=== PATIENT | male | born 1965 | race Hispanic/Latino ===

== ENCOUNTER 2018-10-21 18:35 | Emergency (ER) | payer BC ==
--- OUTSIDE RECORDS SUMMARY | 2018-10-21 18:37 | XMS REPORT ---
:1965 [facility] Address [address] [place] [address] Dr. Garza. [address] [place] [id number] Care Team Providers Name Role Phone DR ELIAS HEALY Unavailable Unavailable Problems This patient has no known problems. Allergies, Adverse Reactions, Alerts This patient has no known allergies or adverse reactions. Medications This patient has no known medications. Results Test Description Test Time Test Comments Text Results Atomic Results Result Comments GLUCOMETER GLUCOSE- LAB USE ONLY 2018-10-21 08:35:00 Test Item Value Reference Range Comments GLUCOMETER (test code=GMG) 140 mg/dL 70-100 DAILY MAINTENANCENOTIFIED DRMeter ID: [id number]: [id number] TIAN CANO GLUCOMETER GLUCOSE- LAB USE [id number] 06:09:00 Test Item Value Reference Range Comments GLUCOMETER (test code=GMG) 149 mg/dL 70-100 Meter ID: [id number]: [id number]
[2018-10-21] MEDS ORDERED: DIPHENHYDRAMINE 50 MG/ML VIAL ONE (19:13)
[2018-10-21] MEDS ORDERED: FAMOTIDINE 20 MG/2 ML VIAL IV ONE (19:13)
--- NOTE | 2018-10-21 20:10 | ER ---
Nurse's Notes [facility] Name: Arpit Wilson Jr Age: 53 yrs Sex: Male : 1965 Arrival Date: 10/21/2018 Time: 18:36 Bed 13 Private MD: Diagnosis: Allergy status to drugs, medicaments and biological substances Presentation: 10/21 18:39 Presenting complaint: Patient states: pt reports SOB and throat tightening after taking sv Tylenol #3 and Demerol PO today at 1615. Symptoms started about 20 mins ago. Transition of care: patient was not received from another setting of care. Onset: The symptoms/episode began/occurred acutely. Anaphylaxis evaluation, no signs or symptoms of anaphylaxis were noted. Onset of symptoms was October 21, 2018. Care prior to arrival: None. 18:39 Method Of Arrival: Carried sv 18:39 Acuity: ELIANA 3 sv 19:00 Risk Assessment: Do you want to hurt yourself or someone else? Patient reports no jb4 desire to harm self or others. 19:00 Initial Sepsis Screen: Does the patient meet any 2 criteria? No. Patient's initial jb4 sepsis screen is negative. Does the patient have a suspected source of infection? No. Patient's initial sepsis screen is negative. Triage Assessment: 18:39 General: Appears in no apparent distress. uncomfortable, Behavior is cooperative, sv anxious. Pain: Denies pain. EENT:. Neuro: Level of Consciousness is awake, alert, obeys commands, Oriented to person, place, time, situation, Moves all extremities. Full function. Respiratory: Airway is patent Respiratory effort is even, unlabored, Respiratory pattern is symmetrical, tachypnea. Historical: - Allergies: 18:40 No Known Allergies; sv - PMHx: 18:40 Hypertension; reflux; Diabetes - NIDDM; sv - PSHx: 18:40 None; left foot; sv - Immunization history:: Adult Immunizations unknown. - Social history:: Smoking status: unknown. - Ebola Screening: : No symptoms or risks identified at this time. Screenin:55 Abuse screen: Denies threats or abuse. Nutritional screening: No deficits noted. em Tuberculosis screening: No symptoms or risk factors identified. Fall Risk None identified. Assessment: 18:55 General: Appears in no apparent distress. uncomfortable, Behavior is calm, cooperative. em Neuro: Level of Consciousness is awake, alert, obeys commands, Oriented to person, place, time, situation. Cardiovascular: Patient's skin is warm and dry. Respiratory: Reports shortness of breath Airway is patent Respiratory effort is even, unlabored, Respiratory pattern is regular, symmetrical, Breath sounds are clear bilaterally. GI: Abdomen is obese. Derm: Skin is intact, is healthy with good turgor, Skin is pink, warm \T\ dry. Musculoskeletal: Range of motion: limited in left ankle. 19:00 Reassessment: The previous assessment is accurate, call light remains within reach. ss 19:07 General: Appears in no apparent distress. comfortable, Behavior is calm, cooperative, jb4 appropriate for age. Pain: Denies pain. Neuro: Level of Consciousness is awake, alert, obeys commands, Oriented to person, place, time, situation. Cardiovascular: Patient's skin is warm and dry. Respiratory: Airway is patent Respiratory effort is even, unlabored, Respiratory pattern is regular, symmetrical, Breath sounds are clear bilaterally. GI: No signs and/or symptoms were reported involving the gastrointestinal system. : No signs and/or symptoms were reported regarding the genitourinary system. EENT: Throat is clear. Derm: Skin is intact, Skin is pink, warm \T\ dry. Musculoskeletal: Circulation, motion, and sensation intact. 20:13 Reassessment: Patient appears in no apparent distress at this time. Patient and/or jb4 family updated on plan of care and expected duration. Pain level reassessed. Patient is alert, oriented x 3, equal unlabored respirations, skin warm/dry/pink. Discussed D/c,F/u with pt and significant other, denies questions or concerns, Verbalized understanding of how to administer epipen if needed and performed teach back. Vital Signs: 18:40 BP 138 / 86; Pulse 86; Resp 22; Temp 97; Pulse Ox 97% ; Weight 116.12 kg; Height 5 ft. sv 9 in. (175.26 cm); 19:37 BP 115 / 78; Pulse 79; Resp 18; Pulse Ox 94% on R/A; mt 20:00 BP 119 / 79; Pulse 76; Resp 16; Pulse Ox 96% on R/A; jb4 18:40 Body Mass Index 37.80 (116.12 kg, 175.26 cm) sv ED Course: 18:36 Patient arrived in ED. ds1 18:40 Triage completed. sv 18:41 Ravin Martines LVN is Primary Nurse. em 18:41 Arm band placed on. sv 18:46 Dale Meng NP is PHCP. pm1 18:46 Brendon Salmeron MD is Attending Physician. pm1 18:55 Patient has correct armband on for positive identification. Placed in gown. Bed in low em position. Call light in reach. Side rails up X2. Adult w/ patient. monitor tech on. Pulse ox on. 19:00 Inserted saline lock: 20 gauge in right antecubital area, using aseptic technique. em 19:07 Door closed. Noise minimized. Warm blanket given. jb4 20:13 No provider procedures requiring assistance completed. jb4 20:13 IV discontinued, intact, bleeding controlled. jb4 Administered Medications: 19:06 Drug: Benadryl 50 mg Route: IVP; Site: right antecubital; jb4 20:26 Follow up: Response: No adverse reaction; Marked relief of symptoms jb4 19:07 Drug: Pepcid 10 mg Route: IVP; Site: right antecubital; jb4 20:00 Follow up: Response: No adverse reaction; Marked relief of symptoms jb4 Outcome: 20:09 Discharge ordered by . pm1 20:13 Discharged to home via wheelchair, with family. jb4 20:13 Condition: stable 20:13 Discharge instructions given to patient, significant other, Instructed on discharge instructions, follow up and referral plans. medication usage, Demonstrated understanding of instructions, follow-up care, medications, Prescriptions given X 3. 20:27 Patient left the ED. jb4 Signatures: Diana Ray RN RN Ravin Martines LVN PHOTOGRAPHER STILL em SingerMeñoi ds1 Lisette Mckay RN RN Dale Meng, GUMARO PUNCHBOARD INSERTER pm1 Hal Rascon RN RN Venessa Epstein mt Corrections: (The following items were deleted from the chart) 19:00 18:39 Presenting complaint: Patient states: pt reports SOB and throat tightening after sv taking Tylenol #3 and Demerol PO today at 1615 sv
--- NOTE | 2018-10-21 20:10 | EDPHYS ---
Physician Documentation [facility] Name: Arpit Wilson Jr Age: 53 yrs Sex: Male : 1965 Arrival Date: 10/21/2018 Time: 18:36 Bed 13 Private MD: ED Physician Brendon Salmeron HPI: 10/21 19:58 This 53 yrs old Male presents to ER via Ambulatory with complaints of Allergic pm1 Reaction. 19:58 The patient presents with Sensation of sore throat after taking pain medication, pm1 Demerol for the the second time.. Onset: The symptoms/episode began/occurred 30 minutes prior to arrival. Associated signs and symptoms: Pertinent positives: shortness of breath, sore throat, Pertinent negatives: abdominal pain, chest pain, hives, rash, vomiting. Possible causes: narcotic, demerol. At home the patient or guardian has treated the symptoms with nothing. Severity of symptoms: in the emergency department the symptoms have improved markedly. The patient has not experienced similar symptoms in the past. The patient has been recently seen by a physician: a advanced practice provider. 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 Was given keflex, tylenol #3 and demerol prescriptions. Patient has had Keflex and Tylenol #3 in the past without any difficulty. Demerol is new to him and after the second dose today he had the sensation of his throat closing and difficulty breathing 30 minutes prior to arrival. Symptoms markedly improved prior to arrival. Historical: - Allergies: 18:40 No Known Allergies; sv - PMHx: 18:40 Hypertension; reflux; Diabetes - NIDDM; sv - PSHx: 18:40 None; left foot; sv - Immunization history:: Adult Immunizations unknown. - Social history:: Smoking status: unknown. - Ebola Screening: : No symptoms or risks identified at this time. ROS: 19:58 Constitutional: Negative for fever, chills, and weight loss, Eyes: Negative for injury, pm1 pain, redness, and discharge, ENT: Negative for injury, pain, and discharge, Neck: Negative for injury, pain, and swelling, Cardiovascular: Negative for chest pain, palpitations, and edema. 19:58 Abdomen/GI: Negative for abdominal pain, nausea, vomiting, diarrhea, and constipation, Back: Negative for injury and pain, : Negative for injury, bleeding, discharge, and swelling, MS/Extremity: Negative for injury and deformity, Skin: Negative for injury, rash, and discoloration, Neuro: Negative for headache, weakness, numbness, tingling, and seizure. 19:58 Respiratory: Positive for shortness of breath, Negative for cough, wheezing. Exam: 19:58 Constitutional: This is a well developed, well nourished patient who is awake, alert, pm1 and in no acute distress. Head/Face: Normocephalic, atraumatic. Eyes: Pupils equal round and reactive to light, extra-ocular motions intact. Lids and lashes normal. Conjunctiva and sclera are non-icteric and not injected. Cornea within normal limits. Periorbital areas with no swelling, redness, or edema. ENT: Nares patent. No nasal discharge, no septal abnormalities noted. Tympanic membranes are normal and external auditory canals are clear. Oropharynx with no redness, swelling, or masses, exudates, or evidence of obstruction, uvula midline. Mucous membranes moist. Neck: Trachea midline, no thyromegaly or masses palpated, and no cervical lymphadenopathy. Supple, full range of motion without nuchal rigidity, or vertebral point tenderness. No Meningismus. Chest/axilla: Normal chest wall appearance and motion. Nontender with no deformity. No lesions are appreciated. Cardiovascular: Regular rate and rhythm with a normal S1 and S2. No gallops, murmurs, or rubs. Normal PMI, no JVD. No pulse deficits. Respiratory: Lungs have equal breath sounds bilaterally, clear to auscultation and percussion. No rales, rhonchi or wheezes noted. No increased work of breathing, no retractions or nasal flaring. Abdomen/GI: Soft, non-tender, with normal bowel sounds. No distension or tympany. No guarding or rebound. No evidence of tenderness throughout. Back: No spinal tenderness. No costovertebral tenderness. Full range of motion. Skin: Warm, dry with normal turgor. Normal color with no rashes, no lesions, and no evidence of cellulitis. MS/ Extremity: Pulses equal, no cyanosis. Neurovascular intact. Full, normal range of motion. 19:58 Neuro: Orientation: is normal, Motor: is normal, Gait: is steady, at a normal pace, without difficulty. Vital Signs: 18:40 BP 138 / 86; Pulse 86; Resp 22; Temp 97; Pulse Ox 97% ; Weight 116.12 kg; Height 5 ft. sv 9 in. (175.26 cm); 19:37 BP 115 / 78; Pulse 79; Resp 18; Pulse Ox 94% on R/A; mt 20:00 BP 119 / 79; Pulse 76; Resp 16; Pulse Ox 96% on R/A; jb4 18:40 Body Mass Index 37.80 (116.12 kg, 175.26 cm) sv MDM: 18:46 Patient medically screened. pm1 18:55 ED course: Patient is diabetic and just had surgery. Patient's symptoms of shortness of pm1 breath and sore throat almost completely resolved. Will treat with Benadryl and Pepcid and observe. Do not want to give steroids unless necessary due to the risk of delaying wound healing.. 19:58 Data reviewed: vital signs. Data interpreted: Pulse oximetry: on room air is 97 %. pm1 Interpretation: normal. 20:07 ED course: Patient's symptoms completely resolved. Will discharge patient home with pm1 Pepcid, Benadryl and EpiPen. Patient said that he will stop all the pain medications and will just take the Keflex. 20:08 Counseling: I had a detailed discussion with the patient and/or guardian regarding: the pm1 historical points, exam findings, and any diagnostic results supporting the discharge/admit diagnosis, the need for outpatient follow up, to return to the emergency department if symptoms worsen or persist or if there are any questions or concerns that arise at home. 10/21 18:55 Order name: IV Saline Lock; Complete Time: 19:01 pm1 Administered Medications: 19:06 Drug: Benadryl 50 mg Route: IVP; Site: right antecubital; jb4 20:26 Follow up: Response: No adverse reaction; Marked relief of symptoms jb4 19:07 Drug: Pepcid 10 mg Route: IVP; Site: right antecubital; jb4 20:00 Follow up: Response: No adverse reaction; Marked relief of symptoms jb4 Disposition: 10/21/18 20:09 Discharged to Home. Impression: Allergy status to drugs, medicaments and biological substances. - Condition is Stable. - Discharge Instructions: Drug Allergy. - Prescriptions for Benadryl 25 mg Oral Capsule - take 1 capsule by ORAL route every 6 hours As needed; 30 tablet. Pepcid 20 mg Oral Tablet - take 1 tablet by ORAL route every 12 hours for 10 days; 20 tablet. EpiPen 0.3 mg Injection auto- injector - inject 1 pen by INTRAMUSCULAR route one time As needed Inject into the outer portion of the thigh, through clothing if necessary. Indicated in the emergency treatment of allergic reactions; 1 unit. - Medication Reconciliation Form, Thank You Letter, Antibiotic Education, Prescription Opioid Use form. - Follow up: Emergency Department; When: As needed; Reason: Worsening of condition. Follow up: Private Physician; When: 2 - 3 days; Reason: Recheck today's complaints, Continuance of care, Re-evaluation by your physician. - Problem is new. - Symptoms have improved. Addendum: 10/24/2018 07:01 Co-signature as Attending Physician, Brendon Salmeron MD I agree with the assessment and c trevizo plan of care. Signatures: Diana Ray, RN Brendon Sanchez MD MD cha Marinas, Patrick, GUMARO AUDIO VISUAL TECHNICIAN pm1 Hal Rascon RN RN jb4 Corrections: (The following items were deleted from the chart) 10/21 20:27 20:09 10/21/2018 20:09 Discharged to Home. Impression: Allergy status to drugs, jb4 medicaments and biological substances. Condition is Stable. Forms are Medication Reconciliation Form, Thank You Letter, Antibiotic Education, Prescription Opioid Use. Follow up: Emergency Department; When: As needed; Reason: Worsening of condition. Follow up: Private Physician; When: 2 - 3 days; Reason: Recheck today's complaints, Continuance of care, Re-evaluation by your physician. Problem is new. Symptoms have improved. pm1
== END 2018-10-21 20:27 | disposition home or self-care (01) ==
LOC: ER 18:35
DX: R06.02 Shortness of breath (principal); I10 Essential (primary) hypertension; Z88.8 Allergy status to other drugs, medicaments and biological substances
CPT/HCPCS: 96374; 96375; 99284

== ENCOUNTER 2020-01-12 10:31 | Emergency (ER) | payer BC, OTHER ==
--- OUTSIDE RECORDS SUMMARY | 2020-01-12 10:34 | XMS REPORT ---
:1965 Author [facility] Address [address] [place] [address] Dr. Garza. [address] [place] [address] Care Team Providers Name Role Phone DR ELIAS HEALY Unavailable Unavailable Payers Payer Name Policy Type Policy Number Effective Date Expiration Date Problems This patient has no known problems. Allergies, Adverse Reactions, Alerts Allergy Name Allergy Status Severity Reaction(s) Onset Inactive Treating Comments Type Date Date Clinician meperidine DA Active SV 2019-03 00:00:0 0 Medications This patient has no known medications. Encounters Start End Encounter Admission Attending Care Care Encounter Date/Time Date/Time Type Type Clinicians Facility Department ID 2018-10-21 2018-10-21 Outpatient Viridiana HEALY [facility] [id number] 05:08:00 08:00:00 ELIAS Results Test Description Test Time Test Comments Text Results Atomic Results Result Comments SURGICAL 2019-05-30 RUN DATE: SPECIMENS 14:54:00 05/30/19 [facility] *LIVE* PAGE 1 RUN TIME: 4 Specimen Inquiry RUN USER: INTERFACE PATIENT: MARGIE BUSH JR LOC: Vicente5N POD B U #: [id number] AGE/SX: 53/M ROOM: [facility] RE05/29/19REG DR: Farhan Gonsales MD : 69 BED: 1 DIS: 05/30/19 STATUS: DIS IN TLOC: This is a corrected report.Any previous versions are stored internally and are available if necessary. SPEC #: [id number] RECD: 05/29/19 STATUS: DEMETRIS REFlakita # : [id number] CELENA: 05/29/[address]: Farhan Gonsales MD ENTERED: 05/29/19 SP TYPE: SURG OTHR DR: ORDERED: PATHGM5, PATH SPEC, H E STAIN, IRON STAIN, PAS STAIN, TRICHROME STAIN, PAS WO.STAIN HISTOLOGY: TISSUE ID BLK PCS SHERRILL LEV / PROCEDURE DISPOSITION ____ ___ ___ ___ ___ LIVER WEDGE BX A 1 2 Signed by: 05/30/191447 [place] Signed by: 05/30/191447 [place] TISSUES : A. LIVER WEDGE BIOPSY - Liver Biospy Signed by: 05/30/191447 [place] CLINICAL HISTORY Morbid Obesity, Reflux, Hypertension, Diabetes, Hepatic Stenosis Signed by: 05/30/191447 [place] COMMENT Changes are consistent with fatty liver disease, borderline steatohepatitis. Signed by: 05/30/191447 [place] FINAL DIAGNOSIS LIVER BIOPSY: - Zone 3 steatosis, involving approximately two-thirds of hepatocytes. - Minimal lobular inflammation with lymphocytes. - No definitive ballooning degeneration. - Portal tracts with no significant pathologic changes. - No PAS positive diastase resistant globules identified on PAS with and without CONTINUED ON NEXT PAGE RUN DATE: 05/30/19 Meme Benitez [facility] *LIVE* PAGE 2 RUN TIME: 1454 Specimen Inquiry RUN USER: INTERFACE SPEC #: [id number] PATIENT: MARGIE BUSH #[id number] (Continued) FINAL DIAGNOSIS (Continued) diastase stain. - Iron stain negative. - No fibrosis identified on Trichrome stain. Signed by: 05/30/191447 [place] GROSS DESCRIPTION CORRECTED RESULT Edited By: NegritoYGEdit Date: 05/30/19 Edit Time: 1Edit Reason: TYPO IN GROSS DESCRIPTION LIVER BIOPSY: The specimen consists of a fragment of liver with cauterized ROUGH surface. It is 3 x 1 x 0.5 cm. Serially sectioned and entirely submitted in one cassette. Liver panel including PAS with and without diastase, Trichrome and iron stains are ordered. JUAN JOSE/mikal Signed by: 05/30/191453 [place] GROSS DESCRIPTION LIVER BIOPSY: The specimen consists of a fragment of liver with cauterized lung surface. It is 3 x 1 x 0.5 cm. Serially sectioned and entirely submitted in one cassette. Liver panel including PAS with and without diastase, Trichrome and iron stains are ordered. JUAN JOSE/mikal Signed by: 05/30/191447 [place] MICROSCOPIC DESCRIPTION Microscopic performed. Signed by: 05/30/191447 [place] Signed SIGNATURE ON FILE Brayden Tristan MD 05/30/19 7658 END OF REPORT SURGICAL 2019-05-30 RUN DATE: SPECIMENS 14:48:00 05/30/19 [facility]e [facility] *LIVE* PAGE 1 RUN TIME: 1448 Specimen Inquiry RUN USER: INTERFACE PATIENT: [facility]USH [facility] #: [id number] AGE/SX: 53/M ROOM: [facility] RE05/29/19[facility] DR: Farhan Gonsales MD : 69 BED: 1 DIS: 05/30/19 STATUS: DIS IN TLOC: SPEC #: [id number] RECD: 05/29/19 STATUS: DEMETRIS REFlakita # : [id number] CELENA: 05/29/19 [facility] DR: Farhan Gonsales MD ENTERED: 05/29/19 SP TYPE: SURG OTHR DR: ORDERED: PATHGM5, PATH SPEC, H E STAIN, IRON STAIN, PAS STAIN, TRICHROME STAIN, PAS WO.STAIN HISTOLOGY: TISSUE ID BLK PCS SHERRILL LEV / PROCEDURE DISPOSITION ____ ___ ___ ___ ___ LIVER WEDGE BX A 1 2 TISSUES: A. LIVER WEDGE BIOPSY - Liver Biospy CLINICAL HISTORY Morbid Obesity, Reflux, Hypertension, Diabetes, Hepatic Stenosis COMMENT Changes are consistent with fatty liver disease, borderline steatohepatitis. FINAL DIAGNOSIS LIVER BIOPSY: - Zone 3 steatosis, involving approximately two-thirds of hepatocytes. - Minimal lobular inflammation with lymphocytes. - No definitive ballooning degeneration. - Portal tracts with no significant pathologic changes. - No PAS positive diastase resistant globules identified on PAS with and without diastase stain. - Iron stain negative. - No fibrosis identified on Trichrome stain. GROSS DESCRIPTION LIVER BIOPSY: The specimen consists of a fragment of liver with cauterized _ lung surface. It is 3 x 1 x 0.5 cm. Serially sectioned and entirely submitted in one cassette. Liver panel including PAS with and without diastase, Trichrome and iron stains are ordered. YYeison/ mikla MICROSCOPIC DESCRIPTION Microscopic performed. CONTINUED ON NEXT PAGE RUN DATE: 05/30/19 Meme GOMEZ *LIVE* PAGE 2 RUN TIME: 1448 Specimen Inquiry RUN USER: INTERFACE SPEC #: [id number] PATIENT: MARGIE BUSH JR #[id number] (Continued) Signed SIGNATURE ON FILE Brayden Tristan MD 05/30/19 1448 END OF REPORT GLUBED 2019-05-30 09:44:00 Test Item Value Reference Range Comments GLUBED (test code=GLUBED) 248 MG/DL -105 [id number] 04:37:00 Test Item Value Reference Range Comments GLUBED (test code=GLUBED) 189 MG/DL - [id number] 22:30:00 Test Item Value Reference Range Comments GLUBED (test code=GLUBED) 196 MG/DL -105 [id number] 10:44:00 Test Item Value Reference Range Comments GLUBED (test code=GLUBED) 280 MG/DL 70-105 BASIC METABOLIC [id number] 06:45:00 Test Item Value Reference Range Comments SODIUM (test code=NA) 132 MMOL/L 136-143 POTASSIUM (test code=K) 3.9 MMOL/L 3.5-5.1 CHLORIDE (test code=CL) 96 MMOL/L 98-107 CARBON DIOXIDE (test 25 mmol/L 24-31 code=CO2) GLUCOSE (test code=GLU) 205 mg/dL 70-104 BLOOD UREA NITROGEN (test 14.2 MG/DL 7.0-21.0 code=BUN) GLOMERULAR FILTRATION >=60 max estimate >60 The estimated glomerular RATE (test code=GFR) filtration rate is computed usingpatient race, age (>18), sex, and serum creatinine. If anyof the needed data elements are missing the Laboratory cannot compute an estimation of the glomerular filtration rate. CREATININE (test 0.7 mg/dL 0.8-1.5 code=CREAT) CALCIUM (test code=CA) 9.3 mg/dL 8.8-10.2 CBC W/AUTO [id number] 06:34:00 Test Item Value Reference Range Comments WHITE BLOOD CELL (test code=WBC) 6.9 x10 3/uL 4.8-10.8 RED BLOOD CELL (test code=RBC) 5.07 x10 6/uL 4.70-6.10 HEMOGLOBIN (test code=HGB) 14.9 g/dL 14.5-20 HEMATOCRIT (test code=HCT) 42.8 % 42.0-52.0 MEAN CELL VOLUME (test code=MCV) 84.4 fL 80.0-94.0 MEAN CELL HGB (test code=MCH) 29.4 pg 27-31 MEAN CELL HGB CONCENTRATION (test code=MCHC) 34.8 G/DL 33-36.5 RED CELL DISTRIBUTION WIDTH (test code=RDW) 13.0 % 12.9-16.9 PLATELET COUNT (test code=PLT) 185 150-440 MEAN PLATELET VOLUME (test code=MPV) 11.8 fL 8.9-12.4 NEUTROPHIL % (test code=NT%) 47.0 % 42.2-75.2 LYMPHOCYTE % (test code=LY%) 37.6 % 20.5-51.1 MONOCYTE % (test code=MO%) 10.5 % 1.7-9.3 EOSINOPHIL % (test code=EO%) 3.2 % 0.0-7.0 BASOPHIL % (test code=BA%) 1.0 % 0-2.5 NEUTROPHIL # (test code=NT#) 3.23 x10 3/uL 1.80-7.70 LYMPHOCYTE # (test code=LY#) 2.59 x10 3/uL 1.00-4.80 MONOCYTE # (test code=MO#) 0.72 x10 3/uL 0.00-0.80 EOSINOPHIL # (test code=EO#) 0.22 x10 3/uL 0.00-0.45 BASOPHIL # (test code=BA#) 0.07 x10 3/uL 0.0-0.20 GLUCOMETER GLUCOSE- LAB USE [id number] 08:35:00 Test Item Value Reference Range Comments GLUCOMETER (test 140 mg/dL 70-100 DAILY MAINTENANCENOTIFIED DRMeter code=GMG) ID: [id number]: [id number] TIAN CANO GLUCOMETER GLUCOSE- LAB USE [id number] 06:09:00 Test Item Value Reference Range Comments GLUCOMETER (test code=GMG) 149 mg/dL 70-100 Meter ID: [id number]: [id number]
[2020-01-12 11:11] LABS: Absolute Lymphocytes (CBC) 1.4 K/uL (0.7-4.9); Basophils % 0.9 % (0-1.3); Hematocrit 45.4 % (39.6-49.0); Lymphocytes % 16.4 % (15.3-44.8); MPV 9.7 fL (7.6-11.3); RBC Red Blood Cell Count 5.11 M/uL (4.33-5.43)
--- NOTE | 2020-01-12 11:18 | RAD REPORT ---
EXAM DESCRIPTION: CT - Stone Protocol - 01/12/2020 11:09 am CLINICAL HISTORY: Flank pain. right side abdomen pain COMPARISON: Abdomen Pelvis W Contrast dated 03/26/2016 TECHNIQUE: Axial images were obtained without oral or IV contrast. Lack of contrast limits solid org an and vascular assessment. The [id number] spans the entirety of the system partially obscuring uppermost abdomen and lung bases. Coronal reformatted images were obtained and reviewed. All CT scans are performed using dose optimization technique as appropriate and may include automated exposure control or mA/KV adjustment according to patient size. FINDINGS: The lower lung carrion are clear. Postsurgical changes are present about the stomach. Anter ior hernia repair surgery also seen. Imaged portions of the liver and spleen show no suspicious findings on non-contrast imaging. The panc reas and adrenal glands are normal. No pathologic lymphadenopathy in the abdomen or pelvis. 3 mm stone is present at the right UVJ resulting in mild right hydronephrosis. No left-sided stone or hydronephrosis. No bowel obstruction, free air, free fluid or abscess. Normal appendix noted. No significant bony abnormality. IMPRESSION: 3 mm stone right UVJ resulting in mild right hydronephrosis.
[2020-01-12] MEDS ORDERED: KETOROLAC 30 MG/ML INJ ONE (11:24)
[2020-01-12] MEDS ORDERED: ONDANSETRON 4 MG/2 ML VIAL ONE (11:24)
[2020-01-12] MEDS ORDERED: NA CHLORIDE 0.9% 1,000 ML ONE (11:24)
[2020-01-12 11:27] LABS: Bilirubin Direct 0.2 mg/dL (0-0.2); Bilirubin Total 0.9 mg/dL (0.2-1.0); Potassium 3.7 mmol/L (3.5-5.1); Protein, Total 8.1 g/dL (6.4-8.2)
[2020-01-12] MEDS ORDERED: TAMSULOSIN 0.4 MG SR CAP ONE (12:04)
[2020-01-12] MEDS ORDERED: MORPHINE 4 MG/ML SYR ONE (12:04)
[2020-01-12] MEDS ORDERED: MAGNESIUM SULFATE 1 gm IVPB 1 GM/100 ML BAG IV ONE (12:05)
[2020-01-12 12:06] LABS: Urine Bacteria <20 /HPF (NONE SEEN); Urine RBC >50 /HPF (NONE SEEN)
[2020-01-12 12:07] LABS: Urine Urothelial Cells <5 /HPF (NONE SEEN)
[2020-01-12 12:07] LABS: Urine Blood 3+ (NEG); Urine Glucose NEGATIVE (NEG); Urine Protein 1+ (NEG)
--- NOTE | 2020-01-12 12:39 | EDPHYS ---
Physician Documentation [facility] Name: Arpit Wilson Jr Age: 54 yrs Sex: Male : 1965 Arrival Date: 01/12/2020 Time: 10:34 Bed 20 Private MD: ED Physician Brendon Salmeron HPI: 01/11 10:55 This 54 yrs old Male presents to ER via Ambulatory with complaints of cp Abdominal Pain. 10:55 The patient presents with abdominal pain right mid abdomen. cp 10:55 Onset: The symptoms/episode began/occurred this morning. cp 10:55 Associated signs and symptoms: Pertinent positives: nausea, urinary frequency. Patient cp reports pain started mid back and has now moved to right side of abdomen. Historical: - Allergies: 10:48 No Known Allergies; iw - Home Meds: 10:48 None [Active]; iw - PMHx: 10:48 reflux; iw - PSHx: 10:48 gastric sleeve; iw - Immunization history:: Adult Immunizations up to date. - Social history:: Smoking status: Patient/guardian denies using tobacco, Stopped _ months ago 9. ROS: 11:00 Constitutional: Negative for body aches, chills, fever, poor PO intake. cp 11:00 Eyes: Negative for injury, pain, redness, and discharge. cp 11:00 ENT: Negative for drainage from ear(s), ear pain, sore throat, difficulty swallowing, difficulty handling secretions. 11:00 Cardiovascular: Negative for chest pain. 11:00 Respiratory: Negative for cough, shortness of breath, wheezing. 11:00 Abdomen/GI: Positive for abdominal pain, nausea, Negative for vomiting, diarrhea, constipation, anorexia, black/tarry stool, rectal bleeding. 11:00 Back: Positive for pain at rest, of the right mid back. 11:00 : Positive for urinary frequency, Negative for burning with urination, testicular pain 11:00 Skin: Negative for rash. 11:00 Neuro: Negative for altered mental status, headache, weakness. 11:00 All other systems are negative. Exam: 11:10 Constitutional: The patient appears in no acute distress, alert, awake, non-toxic, well cp developed, well nourished. 11:10 Head/Face: Normocephalic, atraumatic. cp 11:10 Eyes: Periorbital structures: appear normal, Conjunctiva: normal, no exudate, no injection, Sclera: no appreciated abnormality, Lids and lashes: appear normal, bilaterally. 11:10 ENT: External ear(s): are unremarkable, Nose: is normal, Mouth: is normal, Posterior pharynx: is normal, airway is patent. 11:10 Chest/axilla: Inspection: normal, Palpation: is normal, no crepitus, no tenderness. 11:10 Cardiovascular: Rate: normal, Rhythm: regular. 11:10 Respiratory: the patient does not display signs of respiratory distress, Respirations: normal, no use of accessory muscles, labored breathing, is not present, Breath sounds: are clear throughout, no decreased breath sounds. 11:10 Abdomen/GI: Inspection: abdomen appears normal, Bowel sounds: active, all quadrants, Palpation: soft, in all quadrants, moderate abdominal tenderness, in the anterior aspect of right lateral abdomen and right mid abdomen, rebound tenderness, is not appreciated, involuntary guarding, is not appreciated. 11:10 Back: pain, that is mild, of the right mid back. 11:10 Skin: no rash present. 11:10 Neuro: Orientation: to person, place \T\ time. Mentation: is normal. Vital Signs: 10:46 BP 158 / 79; Pulse 84; Resp 16; Temp 98.2; Pulse Ox 100% on R/A; Weight 97.07 kg; iw Height 5 ft. 9 in. (175.26 cm); Pain 10/10; 11:30 BP 141 / 78; Pulse 83; Resp 18; Pulse Ox 97% ; aj1 10:46 Body Mass Index 31.60 (97.07 kg, 175.26 cm) iw MDM: 10:43 Patient medically screened. taylor 11:00 Differential diagnosis: appendicitis, cholecystitis, Cholelithiasis, non-specific abd cp pain, pancreatitis, Pyelonephritis, Testicular Torsion, Ureterolithiasis, urinary tract infection. 12:37 Data reviewed: vital signs, nurses notes, lab test result(s), radiologic studies, CT cp scan. 12:37 Counseling: I had a detailed discussion with the patient and/or guardian regarding: the cp historical points, exam findings, and any diagnostic results supporting the discharge/admit diagnosis, lab results, radiology results, to return to the emergency department if symptoms worsen or persist or if there are any questions or concerns that arise at home. Response to treatment: the patient's symptoms have markedly improved after treatment, and as a result, I will discharge patient. ED course: VSS. Pain improved. Will discharge to home for continued monitoring. 01/11 10:49 Order name: Basic Metabolic Panel 01/11 10:49 Order name: CBC with Diff 01/11 10:49 Order name: Creatinine for Radiology 01/11 10:49 Order name: Hepatic Function 01/11 10:49 Order name: Lipase 01/11 10:55 Order name: Urine Microscopic Only 01/11 11:12 Order name: CBC with Automated Diff; Complete Time: 11:29 EDMS 01/11 11:29 Interpretation: Normal except: YOLIE% 76.1. 01/11 11:25 Order name: Creatinine (Radiology Only); Complete Time: 11:29 EDMS 01/11 11:28 Order name: Basic Metabolic Panel; Complete Time: 11:29 EDMS 01/11 11:29 Interpretation: Normal except: GLUC 171; GFR 67. 01/11 11:28 Order name: Liver (Hepatic) Function; Complete Time: 11:29 EDMS 01/11 11:30 Interpretation: Normal except: GLOB 4.1; A/G 1.0. 01/11 11:28 Order name: Lipase; Complete Time: 11:29 EDMS 01/11 11:30 Interpretation: Reviewed. 01/11 11:34 Order name: Urine Dipstick--Ancillary (enter results) 01/11 12:08 Order name: Urine Microscopic Only; Complete Time: 12:39 EDMS 01/11 12:08 Order name: Urine Dipstick-Ancillary; Complete Time: 12:39 EDMS 01/11 12:39 Interpretation: Normal except: UKET 2+; UBLD 3+; UPROT 1+. 01/11 10:49 Order name: IV Saline Lock; Complete Time: 11:03 01/11 10:49 Order name: Labs collected and sent; Complete Time: 11:10 01/11 10:49 Order name: Urine Dipstick-Ancillary (obtain specimen); Complete Time: 11:32 cp 01/11 10:55 Order name: CT Stone Protocol 01/11 11:25 Order name: CT; Complete Time: 11:29 EDMS Administered Medications: 11:42 Drug: NS 0.9% 1000 ml Route: IV; Rate: 1 bolus; Site: left antecubital; aj1 13:31 Follow up: IV Status: Completed infusion; IV Intake: 1000ml aj1 11:42 Drug: TORadol - Ketorolac 15 mg Route: IVP; Site: left antecubital; aj1 13:32 Follow up: Response: No adverse reaction aj1 11:43 Drug: Zofran (Ondansetron) 4 mg Route: IVP; Site: left antecubital; aj1 13:32 Follow up: Response: No adverse reaction aj1 12:11 Drug: Magnesium Sulfate 1 grams Route: IVPB; Infused Over: 1 hrs; Site: left aj1 antecubital; 12:11 Drug: Flomax 0.4 mg Route: PO; aj1 13:31 Follow up: Response: No adverse reaction aj1 12:11 Drug: morphine 4 mg Route: IVP; Site: left antecubital; aj1 13:31 Follow up: Response: No adverse reaction aj1 Disposition: 16:32 Co-signature as Attending Physician, Brenodn Salmeron MD I agree with the assessment and taylor plan of care. Disposition: 01/12/20 12:38 Discharged to Home. Impression: Calculus of ureter - right. - Condition is Stable. - Discharge Instructions: Kidney Stones, Renal Colic. - Prescriptions for Tylenol- Codeine #3 300-30 mg Oral Tablet - take 2 tablets by ORAL route every 8 hours As needed; 20 tablet. Zofran 4 mg Oral Tablet - take 1 tablet by ORAL route every 12 hours As needed; 20 tablet. Flomax 0.4 mg Oral Capsule, Sust. Release 24 hr - take 1 capsule by ORAL route once daily 1/2 hour following the same meal each day; 5 capsule. - Medication Reconciliation Form, Thank You Letter, Antibiotic Education, Prescription Opioid Use form. - Follow up: Dominick Ponce MD; When: 2 - 3 days; Reason: symptoms continue. - Problem is new. - Symptoms have improved. Signatures: Dispatcher [employer] EDPA Susan Oliveira RN RN aj1 Brendon Salmeron MD MD cha Williams, Irene, RN RN Brendon Fang PA PA cp Corrections: (The following items were deleted from the chart) 13:33 12:38 01/12/2020 12:38 Discharged to Home. Impression: Calculus of ureter - right. aj1 Condition is Stable. Forms are Medication Reconciliation Form, Thank You Letter, Antibiotic Education, Prescription Opioid Use. Follow up: Dominick Ponce; When: 2 - 3 days; Reason: symptoms continue. Problem is new. Symptoms have improved. cp
--- NOTE | 2020-01-12 12:39 | ER ---
Nurse's Notes [facility] Name: Arpit Wilson Jr Age: 54 yrs Sex: Male : 1965 Arrival Date: 01/12/2020 Time: 10:34 Bed 20 Private MD: Diagnosis: Calculus of ureter-right Presentation: 01/11 10:46 Chief complaint: Patient states: right sided back pain radiating to RUQ X 2 hours, also iw vomited , denies diarrhea, no constipation. Coronavirus screen: The patient has NOT traveled to a country currently being monitored by the [facility] within the last 14 days. Proceed with normal triage procedures. The patient has NOT had contact with any known and/or suspected case of coronavirus. Proceed with normal triage procedures. Ebola Screen: Patient negative for fever greater than or equal to 101.5 degrees Fahrenheit, and additional compatible Ebola Virus Disease symptoms Patient denies exposure to infectious person. Patient denies travel to an Ebola-affected area in the 21 days before illness onset. No symptoms or risks identified at this time. Initial Sepsis Screen: Does the patient meet any 2 criteria? No. Patient's initial sepsis screen is negative. Does the patient have a suspected source of infection? No. Patient's initial sepsis screen is negative. Risk Assessment: Do you want to hurt yourself or someone else? Patient reports no desire to harm self or others. 10:46 Method Of Arrival: Ambulatory iw 10:46 Acuity: ELIANA 3 iw Triage Assessment: 10:50 General: Appears in no apparent distress. comfortable, Behavior is calm, cooperative, bp appropriate for age. Pain: Complains of pain in right upper quadrant. EENT: No deficits noted. Neuro: No deficits noted. Cardiovascular: No deficits noted. Respiratory: No deficits noted. GI: Reports upper abdominal pain, nausea, vomiting. : No signs and/or symptoms were reported regarding the genitourinary system. Derm: No deficits noted. Musculoskeletal: No deficits noted. Historical: - Allergies: 10:48 No Known Allergies; iw - Home Meds: 10:48 None [Active]; iw - PMHx: 10:48 reflux; iw - PSHx: 10:48 gastric sleeve; iw - Immunization history:: Adult Immunizations up to date. - Social history:: Smoking status: Patient/guardian denies using tobacco, Stopped _ months ago 9. Screenin:11 Abuse screen: Denies threats or abuse. Denies injuries from another. Nutritional bp screening: No deficits noted. Tuberculosis screening: No symptoms or risk factors identified. Fall Risk None identified. Assessment: 10:50 General: SEE TRIAGE NOTE. bp 11:13 Reassessment: PT RETURNED FROM CT. bp 11:30 General: Appears in no apparent distress. comfortable, Behavior is calm, cooperative, aj1 appropriate for age. Pain: Complains of pain in back and right upper quadrant Pain does not radiate. Neuro: Level of Consciousness is awake, alert, obeys commands, Oriented to person, place, time, situation. Cardiovascular: Patient's skin is warm and dry. Respiratory: Airway is patent Respiratory effort is even, unlabored, Respiratory pattern is regular, symmetrical. GI: Abdomen is non-distended, Bowel sounds present X 4 quads. Abd is soft and non tender X 4 quads. Reports upper abdominal pain, nausea, vomiting. : No signs and/or symptoms were reported regarding the genitourinary system. EENT: No signs and/or symptoms were reported regarding the EENT system. Derm: No signs and/or symptoms reported regarding the dermatologic system. Skin is pink, warm \T\ dry. normal. Musculoskeletal: No signs and/or symptoms reported regarding the musculoskeletal system. Circulation, motion, and sensation intact. 12:12 Reassessment: Patient appears in no apparent distress at this time. No changes from aj1 previously documented assessment. Patient and/or family updated on plan of care and expected duration. Pain level reassessed. Patient is alert, oriented x 3, equal unlabored respirations, skin warm/dry/pink. 13:30 Reassessment: Patient appears in no apparent distress at this time. No changes from aj1 previously documented assessment. Patient and/or family updated on plan of care and expected duration. Pain level reassessed. Patient is alert, oriented x 3, equal unlabored respirations, skin warm/dry/pink. Vital Signs: 10:46 BP 158 / 79; Pulse 84; Resp 16; Temp 98.2; Pulse Ox 100% on R/A; Weight 97.07 kg; iw Height 5 ft. 9 in. (175.26 cm); Pain 10/10; 11:30 BP 141 / 78; Pulse 83; Resp 18; Pulse Ox 97% ; aj1 10:46 Body Mass Index 31.60 (97.07 kg, 175.26 cm) iw ED Course: 10:34 Patient arrived in ED. fj1 10:43 Brendon Salmeron MD is Attending Physician. taylor 10:43 Brendon Fang PA is PHCP. cp 10:48 Triage completed. iw 10:49 Arm band placed on. iw 11:00 Initial lab(s) drawn, by me, sent to lab. Inserted saline lock: 20 gauge in left iw antecubital area, using aseptic technique. Blood collected. 11:11 Patient has correct armband on for positive identification. Bed in low position. Call bp light in reach. Side rails up X2. 11:24 Susan Oliveira, CHRISTA is Primary Nurse. aj1 11:30 No provider procedures requiring assistance completed. aj1 11:32 Basic Metabolic Panel Sent. 5 11:32 CBC with Diff Sent. 5 11:32 Creatinine for Radiology Sent. 5 11:32 Hepatic Function Sent. 5 11:32 Lipase Sent. 5 12:37 Dominick Ponce MD is Referral Physician. cp 13:15 Removal of peripheral IV. Catheter intact, dressing applied. jp3 13:30 IV discontinued, intact, bleeding controlled, No redness/swelling at site. Pressure aj1 dressing applied. Administered Medications: 11:42 Drug: NS 0.9% 1000 ml Route: IV; Rate: 1 bolus; Site: left antecubital; aj1 13:31 Follow up: IV Status: Completed infusion; IV Intake: 1000ml aj1 11:42 Drug: TORadol - Ketorolac 15 mg Route: IVP; Site: left antecubital; aj1 13:32 Follow up: Response: No adverse reaction aj1 11:43 Drug: Zofran (Ondansetron) 4 mg Route: IVP; Site: left antecubital; aj1 13:32 Follow up: Response: No adverse reaction aj1 12:11 Drug: Magnesium Sulfate 1 grams Route: IVPB; Infused Over: 1 hrs; Site: left aj1 antecubital; 12:11 Drug: Flomax 0.4 mg Route: PO; aj1 13:31 Follow up: Response: No adverse reaction aj1 12:11 Drug: morphine 4 mg Route: IVP; Site: left antecubital; aj1 13:31 Follow up: Response: No adverse reaction aj1 Intake: 13:31 IV: 1000ml; Total: 1000ml. aj1 Outcome: 12:38 Discharge ordered by . carlos 13:33 Discharged to home ambulatory. aj1 13:33 Condition: good 13:33 Discharge instructions given to patient, Instructed on discharge instructions, follow up and referral plans. no drinking with medication, no driving heavy equipment, medication usage, Demonstrated understanding of instructions, follow-up care, medications. 13:33 Patient left the ED. aj1 Signatures: Susan Oliveira RN RN aj1 Brendon Salmeron MD MD cha Williams, Irene, RN RN iw Brendon Fang, PA PA Chela Mcdaniel 5 Jack Busch RN RN Andrew Fox jp3 Vaibhav Hong fj1 Corrections: (The following items were deleted from the chart) 10:49 10:46 Resp 16bpm; Pulse Ox 100% RA; Temp 98.2F; 97.07 kg; Height 5 ft. 9 in.; BMI: iw 31.6; Pain 08/17; iw
[2020-01-12 13:54] VITALS: TEMP 98.2
[2020-01-12 13:56] VITALS: BP 141/78; O2SAT 97
== END 2020-01-12 13:33 | disposition home or self-care (01) ==
LOC: ER 10:31
DX: N20.1 Calculus of ureter (principal); Z87.891 Personal history of nicotine dependence
CPT/HCPCS: 96361; 85025; 80048; 36415; 80076; 83690; 76377; 74176; 96375; 96374; 99283; J3475; J7030; J2405; 81003; 81015

== ENCOUNTER 2021-02-20 17:56 | Observation (INO) | payer OTHER ==
--- OUTSIDE RECORDS SUMMARY | 2021-02-20 17:58 | XMS REPORT | Continuity of Care Document ---
:1965 Author Organization [facility] t Address [address] [place] [address] Care Team Providers Name Role Phone DR ELIAS HEALY Attending Clinician Unavailable DR ELIAS HEALY Admitting Clinician Unavailable Payers Payer Name Policy Type Policy Number Effective Date Expiration Date S ource Problems This patient has no known problems. Allergies, Adverse Reactions, Alerts Allergy Allergy Status Severity Reaction(s) Onset Inactive Treating Comm ents Source Name Type Date Date Clinician lou CARRASCO Active [facility] 06 [place] 00:00: [facility] 00 [facility] Medications This patient has no known medications. Procedures This patient has no known procedures. Encounters Start End Encounter Admission Attending Care Care Encounter Source Date/Time Date/Time Type Type Clinicians Facility Department ID 2018-10-21 2018-10-21 Outpatient LORETO REYES [facility] [id number] Results Test Description Test Time Test Comments Results Result Comments Source SURGICAL SPECIMENS 2019-05-30 14:54:00 RUN DATE: 05/30/19 Meme [facility] LAB *LIVE* PAGE 1 RUN TIME: 1454 Specimen Inquiry RUN USER: INTERFACE PATIENT: MARGIE BUSH JR LOC: [facility] POD B U #: [id number] AGE/SX: 53/M ROOM: [facility] RE05/29/19REG DR: Farhan Gonsales MD : [birth year] BED: 1 DIS: 05/30/19 STATUS: DIS IN TLOC: This is a corrected report.Any previous versions are stored internally and are available if necessary. SPEC #: [id number] RECD: 05/29/19 STATUS: DEMETRIS FOSTER #: [id number] CELENA: 05/29/[address]: Farhan Gonsales MD ENTERED: 05/29/19 SP TYPE: SURG OTHR DR: ORDERED: PATHGM5, PATH SPEC, H E STAIN, IRON STAIN, PAS STAIN, TRICHROME STAIN, PAS WO.STAIN HISTOLOGY: TISSUE ID [id number] PCS SHERRILL LEV / PROCEDURE DISPOSITION ____ ___ ___ ___ ___ LIVER WEDGE BX A 1 2 Signed by: 05/30/[id number] RainaG Signed by: 05/30/191447 [place]gin TISSUES: A. LIVER WEDGE BIOPSY - Liver [...] Meme GOMEZ *LIVE* PAGE 2 RUN TIME: 1454 Specimen Inquiry RUN USER: INTERFACE SPEC #: [id number] PATIENT: MARGIE BUSH JR #[id number] (Continued)--------- --- FINAL DIAGNOSIS (Continued) diastase stain. - Iron [...] SIGNATURE ON FILE Brayden Tristan MD 05/30/19 [id number] END OF REPORT SURGICAL SPECIMENS 2019-05-30 14:48:00 RUN DATE: 05/30/19 Meme GOMEZ *LIVE* PAGE 1 RUN TIME: 1448 Specimen Inquiry RUN USER: INTERFACE PATIENT: MARGIE BUSH LOC: [facility] POD B U #: [id number] AGE/SX: 53/M ROOM: [facility] RE05/29/19BETSY DR: Farhan Gonsales MD : [birth year] BED: 1 DIS: 05/30/19 STATUS: DIS IN TLOC: SPEC #: [id number] RECD: 05/29/19-8484 STATUS: DEMETRIS FOSTER #: [id number] CELENA: 05/29/19-[address]: Farhan Gonsales MD ENTERED: 05/29/19-1141 SP TYPE: SURG OTHR DR: ORDERED: PATHGM5, [...] diastase, Trichrome and iron stains are ordered. YG/eb MICROSCOPIC DESCRIPTION Microscopic performed. CONTINUED ON NEXT PAGE RUN DATE: 05/30/19 Meme GOMEZ *LIVE* PAGE 2 RUN TIME: 1448 Specimen Inquiry RUN USER: INTERFACE SPEC #: [id number] PATIENT: MARGIE BUSH JR #[id number] (Continued)--------- --- Signed SIGNATURE ON FILE Brayden Tristan MD 05/30/19 1448 END OF REPORT GLUBED 2019-05-30 09:44:00 Test Item Value Reference Range Interpretation Comme nts GLUBED (test code = GLUBED) 248 MG/DL 70-105 H [id number] 04:37:00 Test Item Value Reference Range Interpretation Comments GLUBED (test code = GLUBED) 189 MG/DL 70-105 H [id number] 22:30:00 Test Item Value Reference Range Interpretation Comments GLUBED (test code = GLUBED) 196 MG/DL 70-105 H [id number] 10:44:00 Test Item Value Reference Range Interpretation Comments GLUBED (test code = GLUBED) 280 MG/DL 70-105 H BASIC METABOLIC [id number] 06:45:00 Test Item Value Reference Range Interpretation Comments SODIUM (test code 132 MMOL/L 136-143 L = NA) POTASSIUM (test 3.9 MMOL/L 3.5-5.1 N code = K) CHLORIDE (test 96 MMOL/L 98-107 L code = CL) CARBON DIOXIDE 25 mmol/L 24-31 N (test code = CO2) GLUCOSE (test code 205 mg/dL 70-104 H = GLU) BLOOD UREA 14.2 MG/DL 7.0-21.0 N NITROGEN (test code = BUN) GLOMERULAR >=60 max >60 The estimated FILTRATION RATE estimate glomerular (test code = GFR) filtration rate is computed usingpatient ra ce, age (>18), sex, and serum creatinin e. If anyof the neede d data elements a re missing the Laboratory herlinda ot compute an estimation of t he glomerular filtration rate . CREATININE (test 0.7 mg/dL 0.8-1.5 L code = CREAT) CALCIUM (test code 9.3 mg/dL 8.8-10.2 N = CA) CBC W/AUTO [id number] 06:34:00 Test Item Value Reference Range Interpretation Comments WHITE BLOOD CELL (test code = 6.9 x10 3/uL 4.8-10.8 N WBC) RED BLOOD CELL (test code = 5.07 x10 6/uL 4.70-6.10 N RBC) HEMOGLOBIN (test code = HGB) 14.9 g/dL 14.5-20 N HEMATOCRIT (test code = HCT) 42.8 % 42.0-52.0 N MEAN CELL VOLUME (test code = 84.4 fL 80.0-94.0 N MCV) MEAN CELL HGB (test code = MCH) 29.4 pg 27-31 N MEAN CELL HGB CONCENTRATION 34.8 G/DL 33-36.5 N (test code = MCHC) RED CELL DISTRIBUTION WIDTH 13.0 % 12.9-16.9 N (test code = RDW) PLATELET COUNT (test code = 185 150-440 N PLT) MEAN PLATELET VOLUME (test code 11.8 fL 8.9-12.4 N = MPV) NEUTROPHIL % (test code = NT%) 47.0 % 42.2-75.2 N LYMPHOCYTE % (test code = LY%) 37.6 % 20.5-51.1 N MONOCYTE % (test code = MO%) 10.5 % 1.7-9.3 H EOSINOPHIL % (test code = EO%) 3.2 % 0.0-7.0 N BASOPHIL % (test code = BA%) 1.0 % 0-2.5 N NEUTROPHIL # (test code = NT#) 3.23 x10 3/uL 1.80-7.70 N LYMPHOCYTE # (test code = LY#) 2.59 x10 3/uL 1.00-4.80 N MONOCYTE # (test code = MO#) 0.72 x10 3/uL 0.00-0.80 N EOSINOPHIL # (test code = EO#) 0.22 x10 3/uL 0.00-0.45 N BASOPHIL # (test code = BA#) 0.07 x10 3/uL 0.0-0.20 N GLUCOMETER GLUCOSE- LAB USE [id number] 08:35:00 Test Item Value Reference Range Interpretation Comments GLUCOMETER (test 140 mg/dL 70-100 H DAILY MAINT ENANCENOTIFIED code = GMG) DRMeter ID: [id number] tor: 9632 TIAN CANO GLUCOMETER GLUCOSE- LAB USE [id number] 06:09:00 Test Item Value Reference Range Interpretation Comments GLUCOMETER (test code = 149 mg/dL 70-100 H Mete r ID: GMG) [id number] tor: [id number] MALCOLM CONN RA
[2021-02-20 21:11] LABS: Absolute Lymphocytes (CBC) 2.4 K/uL (0.7-4.9); Basophils % 0.9 % (0-1.3); Hematocrit 37.4 % (39.6-49.0); Lymphocytes % 38.8 % (15.3-44.8); MPV 9.3 fL (7.6-11.3); RBC Red Blood Cell Count 4.53 M/uL (4.33-5.43)
--- NOTE | 2021-02-20 21:24 | RAD REPORT ---
EXAM DESCRIPTION: Aleksandar Single View02/20/2021 9:18 pm CLINICAL HISTORY: Chest pain COMPARISON: 2015 FINDINGS: The lungs appear clear of acute infiltrate. The heart is normal size IMPRESSION: No acute abnormalities displayed
[2021-02-20 21:50] LABS: ALT/SGPT 18 U/L (12-78); AST/SGOT 14 U/L (15-37); Albumin 3.5 g/dL (3.4-5.0); BUN Blood Urea Nitrogen 12 mg/dL (7-18); Bicarbonate 28 mmol/L (21-32); Bilirubin Direct 0.1 mg/dL (0-0.2); Bilirubin Total 0.4 mg/dL (0.2-1.0); Glucose Level 91 mg/dL (74-106); Magnesium 2.4 mg/dL (1.8-2.4); NT PRO-BNP 22 pg/mL (<125); Potassium 3.8 mmol/L (3.5-5.1); Protein, Total 6.9 g/dL (6.4-8.2); Sodium Level 142 mmol/L (136-145); Troponin (Emerg Dept Use Only) < 0.02 ng/mL (0.0-0.045)
[2021-02-20 22:01] LABS: Protime INR 0.99
[2021-02-20 22:04] LABS: Alkaline Phosphatase 76 U/L (45-117)
--- NOTE | 2021-02-20 22:12 | EDPHYS ---
Physician Documentation [facility] Name: Arpit Wilson Jr Age: 55 yrs Sex: Male : 1965 Arrival Date: 02/20/2021 Time: 18:02 Bed 30 Private MD: ED Physician Vik Nails HPI: 02/20 18:15 This 55 yrs old Male presents to ER via Ambulatory with complaints of Chest jmm Pain, Numbness Of Arm. 18:15 The patient or guardian reports chest pain that is located primarily in the substernal [facility] area. Onset: acutely, 2 day(s) ago. The pain radiates to the left arm. Associated signs and symptoms: Pertinent positives: Pertinent negatives: abdominal pain, lower extremity swelling, shortness of breath. The chest pain is described as a pressure, squeezing. Duration: The patient or guardian reports a single episode, that is still ongoing. This is a 55 year old male with a history of dm, htn that presents to the ED with complaints of acute on set chest pain which began yesterday morning after standing up. Patient states he nearly passed out and felt as if the room was spinning. Patient states the dizziness has resolved but not has complaints of tingling to the left and right hand. . Historical: - Allergies: 18:12 Demerol; ll1 - PMHx: 18:12 Diabetes - NIDDM; Hypertension; reflux; ll1 - PSHx: 18:12 gastric sleeve; foot sx; ll1 - Immunization history:: Flu vaccine is up to date. - Social history:: Smoking status: Patient denies any tobacco usage or history of. ROS: 18:15 Constitutional: Negative for fever, chills, and weight loss. jmm 18:15 Respiratory: Negative for shortness of breath, cough, wheezing, and pleuritic chest pain. 18:15 Cardiovascular: Positive for chest pain. 18:15 Neuro: Positive for dizziness. 18:15 All other systems are negative. Exam: 18:15 Constitutional: This is a well developed, well nourished patient who is awake, alert, jmm and in no acute distress. Head/Face: atraumatic. Eyes: EOMI, no conjunctival erythema appreciated ENT: Moist Mucus Membranes Neck: Trachea midline, Supple Chest/axilla: Normal chest wall appearance and motion. Cardiovascular: Regular rate and rhythm. No edema appreciated Respiratory: Normal respirations, no respiratory distress appreciated Abdomen/GI: Non distended, soft Skin: General appearance color normal MS/ Extremity: Moves all extremities, no obvious deformities appreciated, no edema noted to the lower extremities Neuro: Awake and alert, normal gait Psych: Behavior is normal, Mood is normal, Patient is cooperative and pleasant Vital Signs: 18:12 BP 133 / 100; Pulse 84; Resp 17; Temp 98.6; Pulse Ox 100% ; Weight 102.06 kg; Height 5 ll1 ft. 10 in. (177.80 cm); Pain 6/10; 21:05 BP 128 / 87; Pulse 75; Resp 19; Pulse Ox 99% ; rr5 22:00 BP 136 / 89; Pulse 70; Resp 16; Pulse Ox 98% ; rr5 23:52 BP 129 / 87; Pulse 79; Resp 17; Pulse Ox 97% ; rr5 18:12 Body Mass Index 32.28 (102.06 kg, 177.80 cm) ll1 MDM: 20:37 Patient medically screened. [facility] 22:09 The patient was given aspirin in the Emergency Department. Data reviewed: vital signs, [facility] lab test result(s), EKG, radiologic studies, plain films. ED course: I discussed the patient with Jhonny Escobar whom accepted the patient to Dr. Nails's service. 02/20 20:48 Order name: Basic Metabolic Panel [facility] 02/20 20:48 Order name: CBC with Diff [facility] 02/20 20:48 Order name: LFT's [facility] 02/20 20:48 Order name: Magnesium [facility] 02/20 20:48 Order name: NT PRO-BNP [facility] 02/20 20:48 Order name: PT-INR [facility] 02/20 20:48 Order name: Troponin (emerg Dept Use Only); Complete Time: 22:08 [facility] 02/20 20:48 Order name: Basic Metabolic Panel; Complete Time: 22:08 [facility] 02/20 20:48 Order name: CBC with Automated Diff; Complete Time: 21:31 [facility] 02/20 20:48 Order name: Liver (Hepatic) Function; Complete Time: 22:08 [facility] 02/20 20:48 Order name: Magnesium; Complete Time: 22:08 [facility] 02/20 20:48 Order name: NT PRO-BNP; Complete Time: 22:08 [facility] 02/20 20:48 Order name: Protime (+INR); Complete Time: 22:30 [facility] 02/20 22:15 Order name: COVID-19 : Document "Date of Symptom Onset" if Symptomatic. rr5 02/20 18:15 Order name: EKG; Complete Time: 18:15 [facility] 02/20 18:15 Order name: EKG - Nurse/Tech; Complete Time: 18:15 [facility] 02/20 20:48 Order name: XRAY Chest (1 view) [facility] 02/20 20:48 Order name: EKG; Complete Time: 20:48 [facility] 02/20 20:48 Order name: Cardiac monitoring; Complete Time: 21:04 [facility] 02/20 20:48 Order name: EKG - Nurse/Tech; Complete Time: 21:04 [facility] 02/20 20:48 Order name: IV Saline Lock; Complete Time: 21:05 [facility] 02/20 20:48 Order name: Labs collected and sent; Complete Time: 21:05 [facility] 02/20 20:48 Order name: O2 Per Protocol; Complete Time: 21:05 [facility] 02/20 21:24 Order name: RAD; Complete Time: 21:31 [facility] 02/20 22:19 Order name: DD [facility] 02/20 22:20 Order name: US Extremity Venous Unilateral Ltd [facility] 02/20 22:36 Order name: D-Dimer; Complete Time: 22:38 [facility] 02/20 22:46 Order name: CORONAVIRUS [facility] 02/20 23:39 Order name: SARS-COV-2 RT PCR [facility] 02/20 20:48 Order name: O2 Sat Monitoring; Complete Time: 21:05 [facility] Administered Medications: 22:25 Drug: Aspirin Chewable Tablet 324 mg Route: PO; rr5 23:20 Follow up: Response: No adverse reaction rr5 Disposition: 02/21 04:48 Co-signature as Attending Physician, Vik Nails MD. rn Disposition: 02/20/21 22:12 Hospitalization ordered by Alen Nails for Observation. Preliminary diagnosis is Chest pain, unspecified. - Bed requested for Telemetry/MedSurg (observation). - Status is Observation. rr5 - Condition is Stable. - Problem is new. - Symptoms are unchanged. Signatures: Dispatcher [employer] Glen Yo PA PA [facility] Vik Nails MD MD rn Garcia, Cindy, RN RN Alen Mills RN RN rr5 Yojana Pro RN RN ll1 Corrections: (The following items were deleted from the chart) 02/20 23:41 22:12 Hospitalization Ordered by Alen Nails MD for Observation. Preliminary cg diagnosis is Chest pain, unspecified. Bed requested for Telemetry/MedSurg (observation). Status is Observation. Condition is Stable. Problem is new. Symptoms are unchanged. [facility] 02/21 00:04 02/20 23:41 02/20/2021 22:12 Hospitalization Ordered by Alen Nails MD for rr5 Observation. Preliminary diagnosis is Chest pain, unspecified. Bed requested for Telemetry/MedSurg (observation). Status is Observation. Condition is Stable. Problem is new. Symptoms are unchanged.
--- NOTE | 2021-02-20 22:12 | ER ---
Nurse's Notes [facility] Name: Arpit Wilson Jr Age: 55 yrs Sex: Male : 1965 Arrival Date: 02/20/2021 Time: 18:02 Bed 30 Private MD: Diagnosis: Chest pain, unspecified Presentation: 02/20 18:12 Chief complaint: Patient states: L CP off/on since Wednesday night. Near syncope ll1 yesterday with nausea, had to calm himself down. No cough or fever. Coronavirus screen: Client denies travel out of the [place] in the last 14 days. At this time, the client does not indicate any symptoms associated with coronavirus-19. Ebola Screen: Patient denies travel to an Ebola-affected area in the 21 days before illness onset. Initial Sepsis Screen: Does the patient meet any 2 criteria? No. Patient's initial sepsis screen is negative. Does the patient have a suspected source of infection? No. Patient's initial sepsis screen is negative. Risk Assessment: Do you want to hurt yourself or someone else? Patient reports no desire to harm self or others. Onset of symptoms was February 18, 2021. 18:12 Method Of Arrival: Ambulatory ll1 18:12 Acuity: ELIANA 3 ll1 Historical: - Allergies: 18:12 Demerol; ll1 - PMHx: 18:12 Diabetes - NIDDM; Hypertension; reflux; ll1 - PSHx: 18:12 gastric sleeve; foot sx; ll1 - Immunization history:: Flu vaccine is up to date. - Social history:: Smoking status: Patient denies any tobacco usage or history of. Screenin:25 Abuse screen: Denies threats or abuse. Denies injuries from another. Nutritional rr5 screening: No deficits noted. Tuberculosis screening: No symptoms or risk factors identified. Fall Risk IV access (20 points). Total Dove Fall Scale indicates No Risk (0-24 pts). Assessment: 20:28 General: Appears in no apparent distress. uncomfortable, Behavior is calm, cooperative, rr5 appropriate for age. Pain: Complains of pain in anterior aspect of left upper chest, left lateral anterior chest and left breast Pain does not radiate. Pain currently is 8 out of 10 on a pain scale. Quality of pain is described as aching, Pain began gradually, Is intermittent. Neuro: Level of Consciousness is awake, alert, obeys commands, Oriented to person, place, time, Reports numbness in left arm. Cardiovascular: Capillary refill < 3 seconds Patient's skin is warm and dry. Respiratory: Airway is patent Respiratory effort is even, unlabored, Respiratory pattern is regular, symmetrical. GI: No signs and/or symptoms were reported involving the gastrointestinal system. : No signs and/or symptoms were reported regarding the genitourinary system. EENT: No signs and/or symptoms were reported regarding the EENT system. Derm: Skin is intact, is healthy with good turgor, Skin temperature is warm. Musculoskeletal: Circulation, motion, and sensation intact. Capillary refill < 3 seconds. 21:30 Reassessment: Patient appears in no apparent distress at this time. Patient and/or rr5 family updated on plan of care and expected duration. Pain level reassessed. Patient is alert, oriented x 3, equal unlabored respirations, skin warm/dry/pink. 22:10 Reassessment: Patient appears in no apparent distress at this time. Patient is alert, rr5 oriented x 3, equal unlabored respirations, skin warm/dry/pink. hospitalist at bedside, for admission. 23:00 Reassessment: Patient appears in no apparent distress at this time. Patient is alert, rr5 oriented x 3, equal unlabored respirations, skin warm/dry/pink. awaiting for room assignment. Vital Signs: 18:12 BP 133 / 100; Pulse 84; Resp 17; Temp 98.6; Pulse Ox 100% ; Weight 102.06 kg; Height 5 ll1 ft. 10 in. (177.80 cm); Pain 6/10; 21:05 BP 128 / 87; Pulse 75; Resp 19; Pulse Ox 99% ; rr5 22:00 BP 136 / 89; Pulse 70; Resp 16; Pulse Ox 98% ; rr5 23:52 BP 129 / 87; Pulse 79; Resp 17; Pulse Ox 97% ; rr5 18:12 Body Mass Index 32.28 (102.06 kg, 177.80 cm) ll1 ED Course: 18:02 Patient arrived in ED. mr 18:07 Arm band placed on. ll1 18:14 Triage completed. ll1 20:11 Glen Montoya PA is PHCP. jmm 20:11 Vik Nails MD is Attending Physician. [facility] 20:25 Alen Green, CHRISTA is Primary Nurse. rr5 20:26 Patient has correct armband on for positive identification. Bed in low position. Call rr5 light in reach. youth nutritional monitor on. Pulse ox on. NIBP on. 21:05 Inserted saline lock: 20 gauge in right antecubital area, using aseptic technique. rr5 Blood collected. 21:05 No provider procedures requiring assistance completed. Patient maintains SpO2 rr5 saturation greater than 95% on room air. 22:11 Alen Nails MD is Hospitalizing Provider. [facility] 02/21 00:01 Patient admitted, IV remains in place. IV discontinued, intact, No redness/swelling at rr5 site. Administered Medications: 02/20 22:25 Drug: Aspirin Chewable Tablet 324 mg Route: PO; rr5 23:20 Follow up: Response: No adverse reaction rr5 Outcome: 22:12 Decision to Hospitalize by Provider. [facility] 02/21 00:02 Admitted to Med/surg accompanied by tech, via stretcher, room 219, with chart, Report rr5 called to apryl Condition: stable Instructed on the need for admit. 00:04 Patient left the ED. rr5 Signatures: Glen Montoya PA PA [facility] Carlene Jarquin mr Alen Green, RN RN rr5 Yojana Pro RN RN ll1
[2021-02-20] MEDS ORDERED: ASPIRIN 81 MG CHEWABLE TABLET ONE (22:35)
--- NOTE | 2021-02-20 22:51 | P.HP ---
Certification for Inpatient Patient admitted to: Observation With expected LOS: <2 Midnights Patient will require the following post-hospital care: None Practitioner: I am a practitioner with admitting privileges, knowledge of patient current condition, hospital course, and medical plan of care. Services: Services provided to patient in accordance with Admission requirements found in Title 42 Section 412.3 of the Code of Federal Regulations <Jhonny Escobar - Last Filed: 02/20/21 22:47> Patient History Date of Service: 02/20/21 Reason for admission: Chest pain History of Present Illness: 55-year-old male with previous history of diabetes and hypertension that have resolved after significant weight loss presents emergency department for chest pain. Patient reports intermittent chest pain since yesterday with 1 near syncopal episode, pain described as pressure-like 8/10 at worst nonradiating without associated symptoms. Nothing in particular seems to relieved or exacerbated symptoms. Patient with a stress test approximately 3-4 years ago that was normal. Workup in the emergency department unremarkable EKG without acute changes labs unremarkable chest x-ray unremarkable. D-dimer negative. ED provider wishes to admit patient for chest pain rule out. - Past Medical/Surgical History -: none -: Gastric sleeve -: Hernia repair -: Left foot Psychosocial/ Personal History: Patient is employed as a truck driver teamster, lives with his family - Family History Father -: Heart disease Mother -: Diabetes - Social History Smoking Status: Former smoker Alcohol use: Yes CD- Drugs: No Caffeine use: Yes Place of Residence: Home <Jhonny Escobar - Last Filed: 02/20/21 22:47> Date of Service: 02/21/21 <Alen Nails - Last Filed: 02/21/21 22:01> Allergies meperidine [From Demerol] Adverse Reaction (Verified 02/21/21 01:11) "feel really odd" Review of Systems 10-point ROS is otherwise unremarkable Cardiovascular: Chest Pain, Light Headedness, As per HPI <Jhonny Escobar - Last Filed: 02/20/21 22:47> Physical Examination - Physical Exam General: Alert, In no apparent distress HEENT: Atraumatic, PERRLA, Mucous membr. moist/pink Neck: Supple, 2+ carotid pulse no bruit, No LAD Respiratory: Clear to auscultation bilaterally, Normal air movement Cardiovascular: Regular rate/rhythm, Normal S1 S2 Gastrointestinal: Normal bowel sounds, No tenderness Musculoskeletal: No tenderness Integumentary: No rashes Neurological: Normal speech, Normal strength at 5/5 x4 extr, Normal tone Lymphatics: No axilla or inguinal lymphadenopathy - Studies Laboratory Data (last 24 hrs) 02/20/21 21:03: PT 11.4, INR 0.99 02/20/21 21:03: WBC 6.10, Hgb 12.6 L, Hct 37.4 L, Plt Count 188 02/20/21 21:03: Sodium 142, Potassium 3.8, BUN 12, Creatinine 0.83, Glucose 91, Magnesium 2.4, Total Bilirubin 0.4, AST 14 L, ALT 18, Alkaline Phosphatase 76 <Jhonny Escobar - Last Filed: 02/20/21 22:47> - Studies Laboratory Data (last 24 hrs) 02/20/21 21:03: PT 11.4, INR 0.99 02/20/21 21:03: Alkaline Phosphatase 76 <Alen Nails - Last Filed: 02/21/21 22:01> Assessment and Plan - Plan Assessment Chest pain rule out ACS Plan Chest pain rule out ACS: Monitor on tele, trend troponins, thyroid last lipid panel with morning labs. Cardiology consult in place continue aspirin/statin/beta-prashant therapy with parameters. DVT prophylaxis Lovenox 40 mg subcutaneous once daily. Appreciate further input from cardiology. Patient was previously diagnosed with hypertension and diabetes but has since lost a lot of weight after having gastric sleeve, not currently taking any medications for diabetes or hypertension, both blood sugar and blood pressure within normal limits at this time, will address as necessary. Discharge Plan: Home Plan to discharge in: 24 Hours - Advance Directives Does patient have a Living Will: No Does patient have a Durable POA for Healthcare: No - Code Status/Comfort Care Code Status Assessed: Yes (Full code) Critical Care: No Time Spent Managing Pts Care (In Minutes): 55 <Jhonny Escobar - Last Filed: 02/20/21 22:47> - Plan Plan of care reviewed as noted above Chest pain, possible ACS, trend troponin, cardio consulted possible gastritis/ulcer givne h/o gastric sleeve <Alen Nails - Last Filed: 02/21/21 22:01>
[2021-02-21] MEDS ORDERED: ACETAMINOPHEN 500 MG TAB PO PRN (00:15)
[2021-02-21] MEDS ORDERED: ONDANSETRON 4 MG/2 ML VIAL IV PRN (00:15)
[2021-02-21] MEDS ORDERED: MORPHINE 2 MG/ML SYR IV PRN (00:15)
[2021-02-21 01:06] VITALS: O2SAT 97
[2021-02-21 01:24] VITALS: BMI 32.3
[2021-02-21 05:38] LABS: Urine Appearance CLEAR (Clear); Urine Bilirubin NEGATIVE (Negative); Urine Blood NEGATIVE (Negative); Urine Color YELLOW (Yellow); Urine Glucose NEGATIVE (Negative); Urine Protein NEGATIVE (Negative); Urine Specific Gravity 1.025 (1.005-1.030); Urine Urobilinogen 0.2 mg/dL (0.2-1.0)
[2021-02-21 05:46] LABS: Absolute Lymphocytes (CBC) 2.3 K/uL (0.7-4.9); Basophils % 1.1 % (0-1.3); Hematocrit 38.1 % (39.6-49.0); Lymphocytes % 39.3 % (15.3-44.8); MPV 9.6 fL (7.6-11.3); RBC Red Blood Cell Count 4.56 M/uL (4.33-5.43)
[2021-02-21 05:56] LABS: ALT/SGPT 17 U/L (12-78); AST/SGOT 13 U/L (15-37); Albumin 3.2 g/dL (3.4-5.0); Alkaline Phosphatase 63 U/L (45-117); BUN Blood Urea Nitrogen 12 mg/dL (7-18); Bicarbonate 29 mmol/L (21-32); Bilirubin Total 0.5 mg/dL (0.2-1.0); Glucose Level 106 mg/dL (74-106); HDL Cholesterol 41 mg/dL (40-60); LDL Cholesterol, Calculated 43 (<130); Magnesium 2.5 mg/dL (1.8-2.4); Potassium 3.8 mmol/L (3.5-5.1); Protein, Total 6.5 g/dL (6.4-8.2); Sodium Level 144 mmol/L (136-145); Troponin I < 0.02 ng/mL (0.0-0.045)
[2021-02-21] MEDS ORDERED: METOPROLOL TAR 25 MG TAB PO SCH (06:00)
[2021-02-21 06:04] LABS: Urine Microscopic Reflex NO UMIC
--- NOTE | 2021-02-21 08:23 | RAD REPORT ---
EXAM DESCRIPTION: US - Extremity Venous Uni Ltd - 02/20/2021 10:44 pm CLINICAL HISTORY: PAIN Leg swelling and edema. COMPARISON: No comparisons FINDINGS: Left lower extremity venous system was interrogated with Doppler technique. Normal flow, c ompressibility and augmentation was noted. There is no DVT present. IMPRESSION: No evidence of left lower extremity deep venous thrombosis.
[2021-02-21] MEDS ORDERED: ASPIRIN EC 81 MG TAB PO SCH (09:00)
[2021-02-21] MEDS ORDERED: POTASSIUM CL SA 10 MEQ TAB PO ONE (09:00)
[2021-02-21] MEDS ORDERED: ENOXAPARIN 40 MG/0.4 ML SQ SCH (09:00)
[2021-02-21] MEDS ORDERED: SODIUM CHLORIDE 0.9% 10ML INJ IV PRN (10:15)
[2021-02-21] MEDS ORDERED: PANTOPRAZOLE 40 MG INJ IVP SCH (11:00)
[2021-02-21] MEDS ORDERED: SUCRALFATE 1 GM TABLET PO SCH (11:30)
[2021-02-21 13:06] VITALS: BP 118/70; TEMP 98.2
--- NOTE | 2021-02-21 13:45 | P.DS ---
Admission Date: 02/20/21 Discharge Date: 02/21/21 Disposition: ROUTINE DISCHARGE Discharge Condition: GOOD Reason for Admission: Chest pain Consultations: Cardiology -Dr. Caruso Procedures: CXR (02/20): no acute abnormalities Venous U/S (02/20): no evidence of LLE DVT Problem List: Chest Pain Gastritis GERD h/o HTN, DM2, resolved after gastric sleeve Brief History of Present Illness: 55-year-old male with previous history of diabetes and hypertension that have resolved after significant weight loss presents emergency department for chest pain. Patient reports intermittent chest pain since yesterday with 1 near syncopal episode, pain described as pressure-like 8/10 at worst nonradiating without associated symptoms. Nothing in particular seems to relieved or exacerbated symptoms. Patient with a stress test approximately 3-4 years ago that was normal. Workup in the emergency department unremarkable EKG without acute changes labs unremarkable chest x-ray unremarkable. D-dimer negative. ED provider wishes to admit patient for chest pain rule out. Hospital Course: Patient reported chest pain seemed to occur during meal times. On further review he noted increasing symptoms of GERD and has been eating a lot more hot sauce lately. Troponins were trended and negative. Cardiology recommended outpatient stress testing. He was treated with protonix and carafate with improvement in symptoms. Follow up with GI or surgeon, would benefit from EGD in near future Follow up with Cardiology for outpatient stress testing. Vital Signs/Physical Exam: Physical Exam General: Alert, In no apparent distress HEENT: Atraumatic, PERRLA, Mucous membr. moist/pink Respiratory: Clear to auscultation bilaterally, Normal air movement Cardiovascular: Regular rate/rhythm, Normal S1 S2 Gastrointestinal: soft, mild epigastric tenderness, no rebound, no distention Musculoskeletal: No tenderness Integumentary: No rashes Neurological: Normal speech, Normal strength at 5/5 x4 extr Temp Pulse Resp BP Pulse Ox 98.2 F 66 18 118/70 97 02/21/21 12:00 02/21/21 12:00 02/21/21 12:00 02/21/21 12:00 02/21/21 12:00 Laboratory Data at Discharge: WBC 5.90 K/uL (4.3-10.9) 02/21/21 05:03 Hgb 12.5 g/dL (13.6-17.9) L 02/21/21 05:03 Hct 38.1 % (39.6-49.0) L 02/21/21 05:03 Plt Count 216 K/uL (152-406) 02/21/21 05:03 PT 11.4 SECONDS (9.5-12.5) 02/20/21 21:03 INR 0.99 02/20/21 21:03 Sodium 144 mmol/L (136-145) 02/21/21 05:03 Potassium 3.8 mmol/L (3.5-5.1) 02/21/21 05:03 BUN 12 mg/dL (7-18) 02/21/21 05:03 Creatinine 0.95 mg/dL (0.55-1.3) 02/21/21 05:03 Glucose 106 mg/dL (74-106) 02/21/21 05:03 Magnesium 2.5 mg/dL (1.8-2.4) H 02/21/21 05:03 Total Bilirubin 0.5 mg/dL (0.2-1.0) 02/21/21 05:03 AST 13 U/L (15-37) L 02/21/21 05:03 ALT 17 U/L (12-78) 02/21/21 05:03 Alkaline Phosphatase 63 U/L (45-117) 02/21/21 05:03 Troponin I < 0.02 ng/mL (0.0-0.045) 02/21/21 11:32 Triglycerides 82 mg/dL (<150) 02/21/21 05:03 Cholesterol 100 mg/dL (<200) 02/21/21 05:03 HDL Cholesterol 41 mg/dL (40-60) 02/21/21 05:03 Cholesterol/HDL Ratio 2.44 02/21/21 05:03 Home Medications: Pantoprazole [Protonix Tab] 40 mg PO BID 30 Days #60 tab 02/21/21 RX: Sucralfate [Carafate*] 1 gm PO ACHS 30 Days #90 tab 02/21/21 New Medications: RX: Sucralfate [Carafate*] 1 gm PO ACHS 30 Days #90 tab Pantoprazole [Protonix Tab] 40 mg PO BID 30 Days #60 tab Physician Discharge Instructions: PROBLEM: Chest pain GOAL: Clear understanding of disease process INSTRUCTIONS: Your chest pain is likely due to your stomach / gastritis or possible ulcer. You had improvement with protonix and carafate - these medications are prescribed on discharge. You were also evaluated for heart damage / heart attack by EKG and cardiac enzyme (troponins) were all normal. Follow up with GI or your Surgeon as discussed, you would benefit from a scope soon. Follow up with Cardiology for an outpatient stress test. Diet: Heart Healthy Activity: As tolerated E-script sent to [facility] in [place] [employer] Influenza Vaccine Indicated: Influenza Vaccine Given: Date Given: Pneumonia Vaccine Indicated: No Pneumonia Vaccine Given: Date Given: Follow up with a Victim Advocate of your choice: HORACIO HERNANDEZ, [facility] [address] [place] [address] BERNABE HERNANDEZ, VIKY [address] [facility], [facility] [address] [place], [place] [id number] Follow up with a Medical Billing And Coding Specialist of your choice: VALERIO HERNANDEZ, [facility] [address] [facility], [place] [address] NABEEL HERNANDEZ, JUANIS [address] [facility], [facility] [place] [address] Diet: AHA (bland) Activity: Ad taj Followup: NONE,NONE [Primary Care Provider] -
[2021-02-21] MEDS ORDERED: ATORVASTATIN 40 MG TAB PO SCH (21:00)
== END 2021-02-21 14:59 | disposition home or self-care (01) ==
LOC: ER 17:56 → ERHOLD 22:30 → 2ND 23:49
PROVIDERS: ADMIT Emergency Medicine; ATTEND Hospitalist
DX: R07.9 Chest pain, unspecified (principal); K29.70 Gastritis, unspecified, without bleeding; K21.9 Gastro-esophageal reflux disease without esophagitis; Z98.84 Bariatric surgery status; Z20.822 Contact with and (suspected) exposure to COVID-19; Z88.6 Allergy status to analgesic agent; Z82.49 Family history of ischemic heart disease and other diseases of the circulatory system; Z83.3 Family history of diabetes mellitus
CPT/HCPCS: 93005; 85025 ×2; 80048; 36415; 83735 ×2; 85610; 80061; 85379; 80076; 84443; 81003; 84484 ×3; 84439; 80053; 83880; 71045; 93971; 99285; U0003; C9113; J1650; J2270; J2405; G0378

== ENCOUNTER 2023-05-15 12:59 | Emergency (ER) | payer OTHER, SELFPAY ==
--- OUTSIDE RECORDS SUMMARY | 2023-05-15 13:02 | XMS REPORT | Continuity of Care Document ---
:1965 Author Organization [facility] t Address [address] [place] [address] Care Team Providers Name Role Phone Asked, No Pcp Primary Care Physician Unavailable Farhan Gonsales Attending Clinician Unavailable TROY JOHNSON Attending Clinician Unavailable MELVIN Attending Clinician Unavailable DR ELIAS HEALY Attending Clinician Unavailable Farhan Gonsales Admitting Clinician Unavailable TROY JOHNSON Admitting Clinician Unavailable MELVIN Admitting Clinician Unavailable DR ELIAS HEALY Admitting Clinician Unavailable Payers Payer Name Policy Type Policy Number Effective Date Expiration Date S ource Problems This patient has no known problems. Allergies, Adverse Reactions, Alerts Allergy Allergy Status Severity Reaction(s) Onset Inactive Treating Comm ents Source Name Type Date Date Clinician meperidi DA Active SV 2018-0 [facility] 03[facility]13 [place] [facility] meperidi DA Active SV ANAPHYLACTIC 2018-0 [facility] ne 03-13 [place] 00:[facility] Social History Social Habit Start Date Stop Date Quantity Comments Source Gender identity [facility] Sex Assigned At [birth year] [facility] 00:00:00 00:00:00 Smoking Status Start Date Stop Date Source Tobacco smoking consumption unknown [facility] Medications This patient has no known medications. Procedures This patient has no known procedures. Encounters Start End Encounter Admission Attending Care Care Encounter Source Date/Time Date/Time Type Type Clinicians Facility Department ID 2021-04-03 Inpatient Dru [facility] ENDO [id number] [facility] 12:00:00 Farhan Valdes [facility] 2019-05-29 Inpatient ADI Gonsales [facility] ADMI [id number] [facility] 05:16:00 Farhan Sage [facility] 2021-03-28 2021-03-28 [id number] [place] 00:00:00 00:00:00 GULCYOJANAN [address] 2019-12-13 2019-12-13 Outpatient ALEXREEN_KISHORE LACHANTELLE [facility] 108 - [place] 12:03:00 12:03:00 HANHakan [address] [facility] 2018-10-21 2018-10-21 Outpatient Viridiana HEALY [facility] [id number] [facility] 05:08:00 [facility]00[facility] Test Description Test Time Test Comments Results Result Comments Source SURGICAL SPECIMENS 2021-04-04 12:29:00 Test Item Value Reference Range Interpretation Comme nts SURGICAL RUN SPECIMENS DATE: 04/04/21 [place] [facility] - LAB PAGE 1 RUN TIME: 1229 Specimen Inquiry RUN USER: (test code INTERFACE = SURG) JOANIE ENT: MARGIE BUSH JR LOC: [place] U #: [id number] AGE/SX: 55/M ROOM: RE04/03/21[facility] DR: Earnest Gonsales MD : 69 BED: DIS: STATUS: [facility] TLOC: SPEC #: [id number] RECD: 04/03/21 STATUS: DEMETRIS RE #: [id number] CELENA: 04/03/21-[address] [facility] [address]: Farhan Gonsales MD ENTER ED: 04/03/21 SP TYPE: SURG OTHR DR: ORDERED: PATHGM4/2, PATH SPEC, H E STAIN/2 HISTOLOGY: TISSUE ID BLK PCS SHERRILL LEV / PROCEDURE DISPOSITION ____ ___ ___ ___ ___ ANTRUM BIOPSY A 1 3 ESOPHAGUS BX B 1 3 TISSUES: A. ANTRUM BIOPSY - PRE Pyloric Antrum Bx B. ESOPHAGUS BIOPSY - Distal Esophagus Bx CLINICAL HISTORY Esophageal Reflux FINAL DIAGNOSIS A. STOMACH, ANTRUM, BIOPSY - ANTRAL AND OXYNTIC MUCOSA WITH SPARSE C HRONIC INFLAMMATION - NEGATIVE FOR INTESTINAL METAPLASIA OR DYSPLASIA B. DISTAL ESOPHAGU S BIOPSY -JUNCTIONAL SQUAMOCOLUMNAR MUCOSA WITH FEATURES OF REFLUX ESOPHAGITIS -POSITIVE FOR EX TENSIVE INTESTINAL METAPLASIA; NEGATIVE FOR DYSPLASIA CPT 44972 X 2 GROSS DESCRIPTION A. Receive d in formalin labeled "prepyloric antrum biopsy" are three rubin-white tissue fragments, 0.3 cm eac h, submitted in "A". B. Received in formalin labeled with the patient's name and "distal e sophagus biopsy" are six tissue fragments, 0.2 cm each, submitted in "B". CM/se Signed SIGNATURE ON FILE Ramiro Miranda 04/04/21 1229 END OF REPORT SURGICAL [id number] 12:29:00 Test Item Value Reference Range Interpretation Comments SURGICAL SPECIMENS (test code = SURG) RUN DATE: 04/09/21 [facility] - LAB PAGE 1 RUN TIME: 1324 Specimen Inquiry RUN USER: INTERFACE PATIENT: MARGIE BUSH LOC: [place] U #: [id number] AGE/SX: 55/M ROOM: RE04/03/21REG DR: Farhan Gonsales MD : 69 BED: DIS: STATUS: [facility] TLOC: SPEC #: [id number] RECD: 04/03/21 STATUS: DEMETRIS REQ #: [id number] CELENA: 04/03/[address] [facility] [address]: Farhan Gonsales MD ENTERED: 04/03/21 SP TYPE: SURG OTHR DR: ORDERED: PATHGM4/2, PATH SPEC, H E STAIN/2 HISTOLOGY: TISSUE ID BLK PCS SHERRILL LEV / PROCEDURE DISPOSITION ____ ___ ___ ___ ___ ANTRUM BIOPSY A 1 3 ESOPHAGUS BX B 1 3 TISSUES: A. ANTRUM BIOPSY - PRE Pyloric Antrum Bx B. ESOPHAGUS BIOPSY - Distal Esophagus Bx ADDENDUM FINDINGS Addendum #1 Entered: 04/09/21 The H. pylori immunostain is negative. CPT 96062 ASR DISCLAIMER FOR IMMUNOHISTOCHEMISTRY: This test was developed and its performance characteristics determined by the [facility]. It has not been cleared or approved by the U.S. Food and Drug Administration. The FDA has determined that such clearance or approval is not necessary. The test is used for clinical purposes. It should not be regarded as investigational or for research. [facility] is certified under the Clinical Laboratory Improvement Amendments of 1988 (CLIA-88) as qualified to perform high-complexity clinical laboratory testing. All controls show appropriate reactivity. Addendum Signed SIGNATURE ON FILE Juliana Garcia MD 04/09/21 1324 CLINICAL HISTORY Esophageal Reflux CONTINUED ON NEXT PAGE RUN DATE: 04/09/21 [facility] - LAB PAGE 2 RUN TIME: 1324 Specimen Inquiry RUN USER: INTERFACE SPEC #: [id number] PATIENT: MARGIE BUSH #[id number] (Continued) --- FINAL DIAGNOSIS A. STOMACH, ANTRUM, BIOPSY - ANTRAL AND OXYNTIC MUCOSA WITH SPARSE CHRONIC INFLAMMATION - NEGATIVE FOR INTESTINAL METAPLASIA OR DYSPLASIA B. DISTAL ESOPHAGUS BIOPSY -JUNCTIONAL SQUAMOCOLUMNAR MUCOSA WITH FEATURES OF REFLUX ESOPHAGITIS -POSITIVE FOR EXTENSIVE INTESTINAL METAPLASIA; NEGATIVE FOR DYSPLASIA CPT 93191 X 2 GROSS DESCRIPTION A. Received in formalin labeled "prepyloric antrum biopsy" are three rubin-white tissue fragments, 0.3 cm each, submitted in "A". B. Received in formalin labeled with the patient's name and "distal esophagus biopsy" are six tissue fragments, 0.2 cm each, submitted in "B". CM/se Signed SIGNATURE ON FILE RubenRamiro Yeison 04/04/21 1229 END OF REPORT SURGICAL [id number] 14:54:00 RUN DATE: 05/30/19 [facility] LAB *LIVE* PAGE 1 RUN TIME: 1454 Specimen Inquiry RUN USER: INTERFACE --------- ---PATIENT: MARGIE BUSH JR LOC: Vicente5N POD B U #: [id number] AGE/SX: 53/M ROOM: [facility] RE05/29/19REG DR: Farhan Gonsales MD : 69 BED: 1 DIS: 05/30/19 STATUS: DIS IN TLOC: This is a corrected report.Any previous versions are stored internally and are available if necessary. SPEC #: [id number] RECD: 05/29/19 STATUS: DEMETRIS FOSTER #: [id number] CELENA: 05/29/[address]: Farhan Gonsales MD ENTERED: 05/29/19 SP TYPE: SURG OTHR DR: ORDERED: PATHGM5, PATH SPEC, H E STAIN, IRON STAIN, PAS STAIN, TRICHROMESTAIN, PAS WO.STAIN HISTOLOGY: TISSUE ID BLK PCS SHERRILL LEV / PROCEDURE DISPOSITION ____ ___ ___ ___ ___ LIVER WEDGE BX A 1 2 Signed by: 05/30/191447Elgin Signed by: 05/30/191447 [place] TISSUES: A. LIVER WEDGE BIOPSY - Liver Biospy Signed by: 05/30/191447 [place] CLINICAL HISTORY Morbid Obesity, Reflux, Hypertension, Diabetes, Hepatic Stenosis Signed by: 05/30/191447 [place] COMMENT Changes are consistent with fatty liver disease,borderline steatohepatitis. Signed by: 05/30/191447 [place] FINAL DIAGNOSIS LIVER BIOPSY: - Zone3 steatosis, involving approximately two-thirds of hepatocytes. - Minimal lobular inflammation with lymphocytes. - No definitive ballooning degeneration. - Portal tracts with no significant pathologic changes. - No PAS positive diastase resistant globules identified on PAS with and without CONTINUED ON NEXT PAGE RUN DATE: 05/30/19 Meme GOMEZ *LIVE* PAGE 2 RUN TIME: 1454 Specimen Inquiry RUN USER: INTERFACE SPEC #: [id number] PATIENT: MARGIE BUSH #[id number] (Continued) FINAL DIAGNOSIS (Continued) diastase stain. - Iron stain negative. - No fibrosis identified on Trichrome stain. Signed by: 05/30/191447Elgin GROSS DESCRIPTION CORRECTED RESULT Edited By: NegritoYGEdit Date: 05/30/19 Edit Time: 1451Edit Reason: TYPO IN GROSS DESCRIPTION LIVER BIOPSY: The specimen consists of a fragment of liver with cauterized ROUGH surface. It is 3 x 1 x 0.5 cm. Serially sectioned and entirely submitted in one cassette. Liver panel including PAS with and without diastase, Trichrome and iron stains are ordered. JUAN JOSE/mikal Signed by: 05/30/191453 [place] GROSS DESCRIPTION LIVER BIOPSY: The specimen consists o f a fragment of liver with cauterized lung surface. It is 3 x 1 x 0.5 cm. Serially sectioned and entirely submitted in one cassette. Liver panel including PAS with and without diastase, Trichrome and iron stains are ordered. JUAN JOSE/mikal Signed by: 05/30/191447 [place] MICROSCOPIC DESCRIPTION Microscopic performed. Signed by: 05/30/191447 [place] Signed SIGNATURE ON FILE Brayden Tristan MD 05/30/19 9454 -- END OF REPORT SURGICAL [id number] 14:48:00 RUN DATE: 05/30/19 Meme GOMEZ *LIVE* PAGE 1 RUN TIME: 1448 Specimen Inquiry RUN USER: INTERFACE --PATIENT: MARGIE BUSH JR LOC: [facility] POD B U #: [id number] AGE/SX: 53/M ROOM: [facility] RE05/29/19REGDR: Farhan Gonsales MD : 69 BED: 1 DIS: 05/30/19 STATUS: DIS IN TLOC: SPEC #: [id number] RECD: 05/29/19 STATUS: DEMETRIS REFlakita #: [id number] CELENA: 05/29/199[address] [facility] [address]: Farhan Gonsales MD ENTERED: 05/29/19 [...] with fatty liver disease, borderline steatohepatitis. FINAL DIAGN OSIS LIVER BIOPSY: - Zone 3 steatosis, involving [...] sectioned and entirely submitted in one cassette. Liverpanel including PAS with and without diastase, Trichrome and iron stains are ordered. YYeison/mikal MICROSCOPIC DESCRIPTION Microscopic performed. CONTINUED ON NEXT PAGE RUN DATE: 05/30/19 Meme GOMEZ *LIVE*PAGE 2 RUN TIME: 1448 Specimen Inquiry RUN USER: INTERFACE SPEC #: [id number] PATIENT: MARGIE BUSH #[id number] (Continued) Signed SIGNATURE ON FILE Brayden Tristan MD 05/30/19 1448 END OF REPORT GLUBED 2019-05-30 09:44:00 Test Item Value Reference Range Interpretation Comments GLUBED (test code = GLUBED) 248 MG/DL 70-105 H [id number] 04:37:00 Test Item Value Reference Range Interpretation Comments GLUBED (test code = GLUBED) 189 MG/DL 70-105 H [id number] 22:30:00 Test Item Value Reference Range Interpretation Comments GLUBED (test code = GLUBED) 196 MG/DL 70-105 H [id number] 10:44:00 Test Item Value Reference Range Interpretation Comments GLUBED (test code = GLUBED) 280 MG/DL 70-105 H BASIC METABOLIC [id number] 06:45:00 Test Item Value Reference Range Interpretation [...] mg/dL 8.8-10.2 N = CA) CBC W/AUTO [id number] 06:34:00 Test Item Value Reference Range Interpretation [...] 3/uL 0.0-0.20 N GLUCOMETER GLUCOSE- LAB USE [id number] 08:35:00 Test Item Value Reference Range Interpretation Comments GLUCOMETER (test 140 mg/dL 70-100 H DAILY MAINT ENANCENOTIFIED code = GMG) DRMeter ID: [id number] tor: 9632 TIAN CANO GLUCOMETER GLUCOSE- LAB USE [id number] 06:09:00 Test Item Value Reference Range Interpretation Comments GLUCOMETER (test code = 149 mg/dL 70-100 H Mete r ID: GMG) [id number] tor: 9140 [address] CONN RA Notes Date/Time Note Provider Source 2019-05-30 08:47:00-00:00 [facility] ([facility] Med Order Sheet REPORT #: [id number] REPORT STATUS: Signed DATE: 05/30/19 TIME: 846 PATIENT: MARGIE BUSH JR UNIT #: [id number] ROOM #: [id number] BED: 1 : 67 AGE: 53 SEX: M ATTEND: Pato Gonsales MD ADM AUTHOR: Farhan Gonsales MD ATTENTION *EDITS and/or ADDENDA must be made in Patient Ke eper for this note. * * Edits and ammendments created in [facility] are not visible * * in Patient Keeper or the legal medical record (HPF). * Discharge Medication Reconciliation DISCHARGE MEDICATION LIST metFORMIN Tab (Glucophage Tab) Dose: 500 MG PO BID metFORMIN Tab (Glucophage Tab) Dose: 500 MG PO BID Zestoretic 20 mg-25 mg tablet (lisinopril-hydroc hlorothiazide) Dose: 1 TAB PO DAILY Zestoretic 20 mg-25 mg tablet (lisinopril-hydroc hlorothiazide) Dose: 1 TAB PO DAILY STOPPED HOME MEDICATIONS Dc'd: omeprazole capsule,delayed release 40 MG P O DAILY STOPPED HOSPITAL MEDICATIONS Dc'd: Dextrose 50%/Water (D50W Inj) 25ML IV ASDI RDc'd: Enalaprilat Inj (Vasotec Inj) 1.25MG IV Q6HDc'd: Glucagon Inj (G lucagon Inj) 1MG IV ASDIRDc'd: Insulin (Lispro) Inj (HumaLOG Inj) 0 UNITS SubQ Q6HDc'd: KCL 20mEq + NS (NS + KCL 20mEq) 20MEQ 125 MLS/HR I V Q8HDc'd: Ketorolac Inj (Toradol Inj) 30MG IV Q6HRDc'd: morphine Inj (morphine Inj) 2 MG IV Q2H PRN pain scale 1-3Dc'd: morphine Inj (morphine Inj) 5MG IV Q2H PRN pain scale 4-6Dc'd: Ondansetron Inj (Zofran Inj) 4MG IV Q6H PRN kehinde sea and vomitingDc'd: Promethazine Inj (Phenergan Inj) 25MG IM Q6H PRN nausea and vomiting at 0847 ATTENTION *EDITS and/or ADDENDA must be made in Patient Leonid ep for this note. * * Edits and ammendments created in [facility] are not visible * * in Patient Keeper or the legal medical record ([facility]). * RPT #: [id number] END OF REPORT 2019-05-30 08:47:00-00:00 [facility] ([facility]) General Surg. D/C Summary REPORT #: [id number] REPORT STATUS: Signed DATE: 05/30/19 TIME: 846 PATIENT: MARGIE BUSH UNIT #: [id number] ROOM #: P.0571 BED: 1 : 67 AGE: 53 SEX: M ATTEND: Pato Gonsales MD ADM AUTHOR: Farhan Gonsales MD ATTENTION *EDITS and/or ADDENDA must be made in Patient Leonid [facility] for this note. * * Edits and ammendments created in [employer] are not visible * * in Patient Keeper or the legal medical record ([facility]). * -- HOSPITAL COURSE -- HOSPITAL COURSE: Post-op progress note Procedure(s): LSG, LRRHH, Left lobe liver bx, la p NIKOLAI Current status: Patient is awake and alert. Ambu lating in the hallway with assistance. Tolerating small volumes of bariatri c clear liquids. Minimal abdominal pain. Denies persistent vomiting, feve rs, chills, dizziness or shortness of breath. Physical examination: general - non-ill, non-toxic, comfortable, good color VS chest - CTA, no increased work of breathing cvs - nsr, no murmur abd - soft, non-distended, minimal incisional pa in, NO peritoneal signs wounds - dressings dry and intact UOP:4600 Assessment: Expected post-operative course Plan: Discharge home today Crush al essential medications with water Bariatric clear liquid diet Ambulate 3 times a day Call IMMEDIATELY for worseni ng abdominal pain, chest pain, shortness of breath, persistent vomiting, left shoulder pain, vomitin g blood, passing blood per rectum, fever, dizziness, inability to drink liq uids, or any other concerning new symptom -- DISCHARGE MEDICATIONS -- ALLERGIES: meperidine (Severe - Allergy) -- DISCHARGE INSTRUCTIONS -- EMERGENCY INSTRUCTIONS: The patient was instructed to present to the critical access hospital Emergency Department or call 911 should their symptoms return or worsen. -- OBJECTIVE -- VITALS (05/29 08:48 - 05/30 08:48): Temperature C: 36.9 (36.8 - 37.3) Pulse Rate 99 (92 - 111) Respiratory rate: 13 (11 - 18) BP: 139/90 (130/80 - 155/100) I/Os (05/29 07:00 - 05/30 07:00): Net 260.00 Intake 1,920.00 Output 1,660 -- DATA -- LABS GLU BED (05/30/19 04:26) GLUBED 189 H GLU BED (05/29/19 22:18) GLUBED 196 H GLU BED (05/29/19 10:32) GLUBED 280 H Signed in PatientKeeper by Farhan Gonsales MD n 05/30/19 at 08:49 at 0850 ATTENTION *EDITS and/or ADDENDA must be made in Patient Ke eper for this note. * * Edits and ammendments created in [employer] are not visible * * in Patient Keeper or the legal medical record (HPF). * [facility] #: [id number] END OF REPORT 2019-05-29 14:23:00-00:00 [id number] [facility] [address] [place] [address] PATIENT NAME: MARGIE BUSH JR ADMIT DATE: 9 ACCOUNT NO: [id number] ROOM NO: [facility]71 AGE: 53 REPORT TYPE: OPERATIVE REPORT SEX: M ADMITTING PHYSICIAN:Farhan Gonsales MD ATTENDING PHYSICIAN:Farhan Gonsales MD OPERATION DATE: 05/29/2019 SURGEON: Farhan Gonsales MD IT HELP DESK TECHNICIAN: Makayla Troy CFA PREOPERATIVE DIAGNOSES: Morbid obesity, BMI of 3 8.2. Also, gastroesophageal reflux disease with esophagitis, sliding hiatal hernia, hepatic steatosis, hypertension, diabetes mellitus, obstructive sle ep apnea, previous open laparotomy. POSTOPERATIVE DIAGNOSES: Morbid obesity, BMI of 38.2. Also, gastroesophag eal reflux disease with esophagitis, sliding hiatal hernia, hepatic stea tosis, hypertension, diabetes mellitus, obstructive sleep apnea, previous open laparotomy with dense intra-abdominal adhesions involving transverse c olon, left lobe of liver, stomach, omentum; also presence of previously pl aced anterior abdominal wall mesh. PROCEDURE: Laparoscopic slee ve gastrectomy (), also laparoscopic reduction and posterior repair of hiatal hernia, also lapa roscopic wedge biopsy of left lobe of the liver. ANESTHESIA: General endotracheal anesthesia. ESTIMATED BLOOD LOSS: 25 mL. PATHOLOGY SPECIMEN: Wedge biopsy, left lobe of l iver. PREOPERATIVE ANTIBIOTICS: Ancef 2 g IV. PREOPERATIVE DEEP VENOUS THROMBOSIS PROPHYLAXIS: Enoxaparin 30 mg subcutaneously and bilateral lower extremity SCD s. COMPLICATIONS: None. PROCEDURE IN DETAIL: The pat ient was prepped and draped in supine position with abdomen exposed. Note, there was a long wide midline scar and the incision was made superior and to the left of the umbilicus. A blunt trocar with camera inserted and was passed through the rect us muscle posterior sheath and through the transverse abdominis muscle. However, on att empting to enter peritoneal space, it was obvious there were adhesions witho ut obvious identifiable intraperitoneal fat. It was elected to make a se cond incision in the right PATIENT NAME: MARGIE BUSH JR 4990 upper quadrant and placed the blunt troc ar in a similar fashion there. On this placement, there was clear d efinition of the abdominal wall layers and the blunt trocar was passed into the peritoneal space. Per itoneum was insufflated. Inspection revealed the trocar to be in the kathy toneal space, but with the transverse colon immediately adjacent to it and superior, it was densely adherent to the anterior abdominal wall from the lateral right to the lateral left peritoneal space. The omentum was a lso adherent to the anterior abdominal wall diffusely. Loose and free small bowel was n oted posteriorly. A second trocar was placed in the infraumbilical position with 5-mm trocar and a 5-mm camera was passed through this, dissection was s tarted through the initial trocar mobilizing the transverse colon away from the anterior abdominal wall. This was a tedious, but a great care was taken not to apply energy to the wall of the transverse colon. Dur ing the part of that portion of the dissection more to the right of the midline, evidence of previously placed laparoscopic mesh was noted with several coiled fixation tacks noted; however, the omentum could be swept from this mobilizing the transverse colon. This was carried medially until the space leading towards the stomach was well developed and then dissection was then done superiorly to t he omentum from the mid portion of the left abdomen laterally to the left anterior axil lorna line. This allowed for placement of a 5-mm trocar in the left lateral s ubchondral area of the left upper quadrant. This was placed under direct vis ion. A second trocar was placed superior to the original trocar superiorl y. This allowed for adequate dissection. The left lobe of the liver was inspe cted. It was found to have obvious fatty infiltration and appeared to be densely adherent to the anterior abdominal wall. No liver retractor was required for the remainder of the procedure. The patient was repositioned into a s teep reverse Trendelenburg position. The original trocar site was then insp ected and some omental dissection done. There did n ot appear to be any injury to intra-abdominal organ from the first initial attem pt at trocar placement and a 12-mm trocar was placed at this position. Dissection was done mobilizing the left lobe of the liver from the anterior aspect of the stomach. This wa s done up to the hiatus. Dissection was then done, se parating the fundus from the left crura. Dissection was then carried posteriorly and then inferolate rally down along the greater curve, some short gastric vessels were taken wit h the EnSeal device as well including mobilizing the fundus. Once this had been completed, the pars flaccida was opened and dissection was done open ing the peritoneum along the right crura. The right crura l dissection was carried from posterior to anterior and then laterally to the si te of the left crura a posterior dissection was done as well, completely mobilizing the EG junction, 365 degrees allowing it to be reduced easily into the peritoneal space without tension. Dissection was then done. Attention was turned to the pylorus. The 4 cm proximal to this the greater curve dissection was done the omentum from the greater curve of the stomach. This was done until lesser sac w as exposed. Dissection was then carried up along the gr eater curve to the site of the previous dissection. This completely mobilized the stomach. Some post erior attachments were taken down as well. A 38-Divehi bougie was pas sed orogastrically so the tip was near the pylorus, drawn back slightly against the les ser curve. The first staple load firing was a green load from the distal mos t aspect of the greater curve dissection towards the incisura allowing for the presence of the bougie. Multiple gold loads were then fired working supe riorly until the stomach was transected near the angle of His. The remnant st omach was placed in left lateral abdomen. General inspection of the stapl e line revealed the staple to be well formed and well seat ed within the Kathy-Strip with no significant gapping or bleeding noted. The EG ju nction was then reflected laterally and a posterior PATIENT NAME: MARGIE BUSH JR 4990 crural repair was done with interrupted 0 Ethibond suture using intracorporeal suture technique. Once this was complete d, the bougie was removed and replaced with an OG tube. The stomach was held closed dis kanwal to the distal most staple firing and 60 mL of methylene blue dye normal sa line solution was instilled. There was good distention of the entire sleeve w ithout any evidence of leak anywhere along the staple line. The tube was suc tioned and removed. The area of the adherent thin left lo be of the liver inferolaterally was then approached with the EnSeal device and a wedge biopsy was ta efe using the EnSeal device approximately a cm in length. This was sent for pathology. There was minimal to no bleeding with this. The raw edge of the li marleni, however, was cauterized and again there was no evidence of bleeding afte r cautery application. The original trocar site was widened and the remnant stomach was retrieved. Inspection was then done and careful cm by cm in spection was done of the transverse colon. There did not appear to be any injury of note in transverse colon, although some of the adjacent divided ome ntum was obviously irregular. The two lower trocar sites w ere infiltrated at the preperitoneal area with 0.25% bupivacaine lateral to either incision a nd 0 Vicryl sutures were placed. These were tied down securely. The remainder of the wo unds were infiltrated with 0.25% bupivacaine. The skin was then closed with running 4-0 Monocryl suture. Steri-Strip and dry dressing s were applied. The patient tolerated the procedure well. No hematoma or oxygenation problems. Dictated By: Farhan Gonsales MD WT: OP:HAILEY/MARK/KRISTINA Conf#: [id number]/DID#: [id number] Authenticated by Farhan Gonsales MD On 05/09 08:51:41 AM at 0852 PATIENT NAME: MARGIE BUSH JR [id number] 2019-05-29 10:16:00-00:00 [facility] ([facility] Brief Operative Report REPORT #: [id number] REPORT STATUS: Signed DATE: 05/29/19 TIME: 1016 PATIENT: MARGIE BUSH JR UNIT #: [id number] ROOM #: P.0571 BED: 1 : 67 AGE: 53 SEX: M ATTEND: Pato Gonsales MD ADM AUTHOR: Farhan Gonsales MD ATTENTION *EDITS and/or ADDENDA must be made in Patient Ke eper for this note. * * Edits and ammendments created in [employer] are not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
--- NOTE | 2023-05-15 14:04 | RAD REPORT ---
EXAM DESCRIPTION: Linda Mendoza Left05/15/2023 1:46 pm CLINICAL HISTORY: Left leg pain status post injury FINDINGS: No fracture is seen
--- NOTE | 2023-05-15 14:11 | ER ---
Nurse's Notes [facility] Name: Arpit Wilson Jr Age: 57 yrs Sex: Male : 1965 Arrival Date: 05/15/2023 Time: 12:59 Bed 7 Private MD: Diagnosis: Contusion of left lower leg Presentation: 05/15 13:11 Chief complaint: Piece of metal from old bathtub hit left lower leg 2 days ago, c/o hb left lower leg and foot swelling, and pain 7/10. Coronavirus screen: At this time, the client does not indicate any symptoms associated with coronavirus-19. Ebola Screen: No symptoms or risks identified at this time. Initial Sepsis Screen: Does the patient meet any 2 criteria? No. Patient's initial sepsis screen is negative. Does the patient have a suspected source of infection? No. Patient's initial sepsis screen is negative. Risk Assessment: Do you want to hurt yourself or someone else? Patient reports no desire to harm self or others. Onset of symptoms was May 13, 2023. 13:11 Method Of Arrival: Ambulatory hb 13:11 Acuity: ELIANA 4 hb 13:12 Initial Sepsis Screen: Does the patient meet any 2 criteria? No. Patient's initial ap3 sepsis screen is negative. Does the patient have a suspected source of infection? No. Patient's initial sepsis screen is negative. Historical: - Allergies: 13:13 Demerol; hb - Home Meds: 13:13 furosemide 20 mg Oral tab 1 tab once daily [Active]; lisinopril 20 mg Oral tab 1 tab hb once daily [Active]; omeprazole 40 mg Oral cpDR 1 cap once daily [Active]; - PMHx: 13:13 Diabetes - NIDDM; Hypertension; reflux; hb - Immunization history:: Adult Immunizations up to date. - Social history:: Smoking status: Patient denies any tobacco usage or history of. Screenin:12 Abuse screen: Denies threats or abuse. Nutritional screening: No deficits noted. ap3 Tuberculosis screening: No symptoms or risk factors identified. 13:19 [facility] ED Fall Risk Assessment (Adult) History of falling in the last 3 months, ap3 including since admission No falls in past 3 months (0 pts). Assessment: 13:11 General: Appears in no apparent distress. Behavior is calm, cooperative. Pain: ap3 Complains of pain in left townsend Pain currently is 7 out of 10 on a pain scale. Pain began 1 day ago. Neuro: Level of Consciousness is awake, alert, obeys commands, Oriented to person, place, time, situation. Cardiovascular: Patient's skin is warm and dry. Respiratory: Airway is patent Respiratory effort is even, unlabored, Respiratory pattern is regular, symmetrical. Vital Signs: 13:11 BP 159 / 98; Pulse 88; Resp 16; Temp 98(O); Pulse Ox 99% on R/A; Weight 102.06 kg; hb Height 5 ft. 9 in. ; Pain 7/10; 13:11 Body Mass Index 33.23 (102.06 kg, 175.26 cm) hb 13:11 Pain Scale: Adult hb ED Course: 13:00 Patient arrived in ED. ts1 13:02 [facility] sb[facility] 13:02 Brendon Salmeron MD is Attending Physician. sb4 13:11 Claudia Lal, RN is Primary Nurse. ap3 13:11 Arm band placed on right wrist. ap3 13:11 Patient has correct armband on for positive identification. Bed in low position. Call ap3 light in reach. Side rails up X 1. Adult w/ patient. Pulse ox on. NIBP on. 13:13 Triage completed. hb 13:19 No provider procedures requiring assistance completed. ap3 13:48 Tib Fib Left XRAY In Process Unspecified. EDMS 14:11 Jarrell Miller MD is Referral Physician. sb4 15:07 Patient did not have IV access during this emergency room visit. ap3 Administered Medications: No medications were administered Medication: 13:27 VIS not applicable for this client. vg1 Outcome: 14:11 Discharge ordered by . sb4 15:06 Discharged to home ambulatory, with family. ap3 15:06 Condition: good 15:06 Discharge instructions given to patient, family, Instructed on discharge instructions, follow up and referral plans. Demonstrated understanding of instructions, follow-up care, medications, Prescriptions given X 1. 15:07 Patient left the ED. ap3 Signatures: Dispatcher [facility] EDIL Gabby Clement RN RN Claudia Lal RN RN ap3 Cristina Ferrell RN RN vg1 Bernadette Weston PA-C PA-C sb4 Wendie Santana PAS PAS ts1 Corrections: (The following items were deleted from the chart) 13: IV discontinued, intact, bleeding controlled, No redness/swelling at site. vg1 Pressure dressing applied, vg1 13: Discharged to home ambulatory, with family, vg1 vg1 13: Condition: good vg1 vg1 13: Discharge instructions given to patient, Instructed on discharge instructions, vg1 follow up and referral plans. Demonstrated understanding of instructions, follow-up care, vg1 13: BP 120 / 80; Pulse 80bpm; Resp 16bpm; Pulse Ox 99% RA; vg1 vg1
--- NOTE | 2023-05-15 14:11 | EDPHYS ---
Physician Documentation [facility] Name: Arpit Wilson Jr Age: 57 yrs Sex: Male : 1965 Arrival Date: 05/15/2023 Time: 12:59 Bed 7 Private MD: ED Physician Brendon Salmeron HPI: 05/15 14:14 This 57 yrs old Male presents to ER via Ambulatory with complaints of Leg Pain.sb4 14:14 The patient presents with an injury. The complaints affect the left townsend. Context:. 57 sb4 year old male negative medical history presents with left townsend pain. He states that he was using a sledge hammer to break down a bathtub. A piece of the tub broke off and hit him in the mid townsend. He states the pain and swelling have gotten worse over the past few days. Neurovascularly intact.. Historical: - Allergies: 13:13 Demerol; hb - Home Meds: 13:13 furosemide 20 mg Oral tab 1 tab once daily [Active]; lisinopril 20 mg Oral tab 1 tab hb once daily [Active]; omeprazole 40 mg Oral cpDR 1 cap once daily [Active]; - PMHx: 13:13 Diabetes - NIDDM; Hypertension; reflux; hb - Immunization history:: Adult Immunizations up to date. - Social history:: Smoking status: Patient denies any tobacco usage or history of. ROS: 14:14 Constitutional: Negative for fever, chills, and weight loss. sb4 14:14 MS/extremity: Positive for injury or acute deformity, ecchymosis, pain, swelling, tenderness. 14:14 All other systems are negative. Exam: 14:14 Constitutional: This is a well developed, well nourished patient who is awake, alert, sb4 and in no acute distress. Head/Face: Normocephalic, atraumatic. Eyes: Extra-ocular motions intact. Periorbital areas with no swelling, redness, or edema. Skin: Warm, dry with normal turgor. Normal color with no rashes, no lesions, and no evidence of cellulitis. 14:14 Musculoskeletal/extremity: ROM: intact in all extremities, Circulation is intact in all extremities. Sensation intact. Vital Signs: 13:11 BP 159 / 98; Pulse 88; Resp 16; Temp 98(O); Pulse Ox 99% on R/A; Weight 102.06 kg; hb Height 5 ft. 9 in. ; Pain 7/10; 13:11 Body Mass Index 33.23 (102.06 kg, 175.26 cm) hb 13:11 Pain Scale: Adult hb MDM: 13:02 Patient medically screened. sb4 14:14 Differential diagnosis: dislocation, open fracture, closed fracture, contusion, sb4 abrasion, tendonitis. Data reviewed: vital signs, nurses notes, radiologic studies, plain films. Data reviewed: and as a result, I will discharge patient. Independent interpretation of the following test(s) in the Emergency Department X-Ray: My interpretation is My interpretation of the tibia tibia x-ray image is no acute fracture. Historians other than the Patient: Spouse/Significant Other: . Counseling: I had a detailed discussion with the patient and/or guardian regarding: the historical points, exam findings, and any diagnostic results supporting the discharge/admit diagnosis, radiology results, to return to the emergency department if symptoms worsen or persist or if there are any questions or concerns that arise at home. 05/15 13:10 Order name: Tib Fib Left XRAY; Complete Time: 14:06 sb4 05/15 14:11 Order name: Hua Wrap; Complete Time: 15:06 sb4 Administered Medications: No medications were administered Disposition Summary: 05/15/23 14:11 Discharge Ordered Location: Home sb4 Problem: new sb4 Symptoms: are unchanged sb4 Condition: Stable sb4 Diagnosis - Contusion of left lower leg sb4 Followup: sb4 - With: - When: As needed - Reason: Further diagnostic work-up, Recheck today's complaints, Re-evaluation by your physician Discharge Instructions: - Discharge Summary Sheet sb4 - Contusion sb4 Forms: - Medication Reconciliation Form sb4 - Thank You Letter sb4 - Antibiotic Education sb4 - Prescription Opioid Use sb4 - Risk Ident_Portal_[email or web address] sb4 Prescriptions: - meloxicam 7.5 mg Oral tablet - take 1 tablet by ORAL route daily for 10 days; 10 tablet; Refills: 0, Product sb4 Selection Permitted Signatures: Dispatcher [facility] EDGabby Barrera RN RN Claudia Lal RN RN ap3 Brown, Bernadette, PA-C PA-C sb4
[2023-05-15 15:25] VITALS: BP 159/98; TEMP 98; O2SAT 99
== END 2023-05-15 15:07 | disposition home or self-care (01) ==
LOC: ER 12:59
DX: S80.12XA Contusion of left lower leg, initial encounter (principal); W20.8XXA Other cause of strike by thrown, projected or falling object, initial encounter; Y93.H3 Activity, building and construction; Y92.002 Bathroom of unspecified non-institutional (private) residence as the place of occurrence of the external cause; I10 Essential (primary) hypertension; E11.9 Type 2 diabetes mellitus without complications; K21.9 Gastro-esophageal reflux disease without esophagitis; Z88.6 Allergy status to analgesic agent
CPT/HCPCS: 99283